=== PATIENT | female | born 1960 | race Caucasian/White ===

== ENCOUNTER 2018-05-02 11:30 | Outpatient (RCR) | payer MEDICAID, SELFPAY ==
--- NOTE | 2018-05-02 09:45 | PTTR_ITS ---
DATE: 05/02/18 SUBJECTIVE: Rosa Isela stating that she had a lot of soreness in her (L) hips for 2- 3 days following her last tx due to muscle fatigue. She is now feeling much better. She doesn't feel that she is going to be able to handle 3x per week based on her muscle pain that she is experiencing and would like to just do 2x per week transitioning into MSP. OBJECTIVE: Therapeutic procedures ([id number]). * X See flow sheet * X Provided skilled instruction in proper exercise performance * X Provided skilled manual cues to facilitate proper muscle recruitment and/ or movement pattern Direct treatment time: 30 minutes Total treatment time: 30 minutes ASSESSMENT: Pt demonstrating awareness of her own limitations demonstrating good movement pattern and muscle recruitment with all exercises and I feel that she is more than appropriate to progress to the MSP program under life skills trainer supervision for continued (L) hip girdle and core strengthening efforts. She is certainly demonstrating continued weakness and fatigue but I feel that this is something that can certainly be productively carried out with life skills trainer supervision so we can preserve her PT sessions for the year. PLAN: Pt to continue with MSP x1 month. I will see her again in 1 month to see how she is progressing.
== END 2018-05-31 23:59 | disposition home or self-care (01) ==
LOC: PT 11:30
PROVIDERS: PCP Nurse Practitioner Family; Referring Provider Orthopaedic Surgery; Visit Provider Orthopaedic Surgery
DX: S72.002D Fracture of unspecified part of neck of left femur, subsequent encounter for closed fracture with routine healing (principal)
CPT/HCPCS: 97110

== ENCOUNTER 2018-08-12 08:58 | Day surgery (SDC) | payer MEDICAID, SELFPAY ==
--- NOTE | 2018-08-12 06:52 | W.COLOREPORT ---
Date of service: 08/12/18 Time of Service: 11:10 Colonoscopy Report Date of procedure: 08/12/18 Pre-op diagnosis general: Colon Cancer screening Post-op diagnosis procedure note: other (Diverticulosis, internal hemorrhoids) Procedure: Colonoscopy Surgeon: Roberta Guerra Anesthesia proc note operative: MAC (Hugo Matthew CRNA/ ASA 2) Estimated blood loss (mL): 0 Pathology: none sent Complications: None Disposition: same day Indications: Mrs. Washington is a pleasant 58 year old female who was seen in the office for a colonoscopy. Her last colonoscopy in 2007 was normal. Risks, benefits, complications were reviewed with her and she wished to proceed. No guarantees were given or implied Prep: Miralax/Dulcolax Procedure Start Time: 11:10 Procedure End Time: 11:38 Retraction Time: 16 minutes Findings: Grade 1 internal hemorrhoids Mild sigmoid diverticulosis Procedure Description: After informed consent was obtained the patient was taken to the procedure room and placed in a left decubitous position. Monitors were applied and a time out was done. The patients name, date of , procedure, allergies to medications and metal in their body was reviewed. The patient was then sedated. Once sedated and comfortable a rectal exam was done. External exam was normal. Internal exam revealed a normal sphincter tone and no palpable masses. The scope was then introduced and retroflexed. Grade I internal hemorrhoids were identified. The scope was then advanced to the cecum without difficulty. The TI and appendiceal orifice were identified. The prep was adequate. There was some liquid stool but that was able to get washed easily. The scope was then slowly retracted over 16 minutes back into the rectum. There was some mild diverticulosis of the sigmoid colon. The scope was removed and the patient was woken up and taken back to Same day surgery in stable condition. The patient tolerated the procedure well and there were no immediate complications. Follow up: The patient should follow up in 10 years unless they develop changes in bowel habits or other new gastrointestinal complaints.
--- NOTE | 2018-08-12 07:05 | PDOC.DSDIS_ITS ---
Discharge Plan Disposition Patient Disposition: HOME Condition: Good Discharge Details Reason For Visit: SCREENING Attending Provider: Roberta Guerra Primary Care Provider: Lucila Love Home Meds and New Rx's Prescriptions: Continue multivitamin [Multi-Day] 1 EACH tablet 1 ea PO DAILY RF: 0 glucosamine sulfate 2KCl 1,000 MG tablet 1,000 mg PO DAILY RF: 0 omega-3 fatty acids-fish oil 1 EACH capsule 1 ea PO DAILY RF: 0 aspirin [Aspir-81] 81 MG tablet,delayed release (DR/EC) 81 mg PO DAILY RF: 0 cinnamon bark 500 MG capsule 500 mg PO BID RF: 0 montelukast [Singulair] 10 MG tablet 10 mg PO DAILY Qty: 90 RF: 4 albuterol sulfate [ProAir HFA] 8.5 GM HFA aerosol inhaler 2 puff Inhalation Q6H PRN Qty: 1 RF: 3 loratadine [Claritin] 10 MG tablet 10 mg PO DAILY Qty: 90 RF: 2 fluticasone [Flovent HFA] 12 GM HFA aerosol inhaler 2 puff Inhalation BID Qty: 1 RF: 11 multivitamin with minerals [Hair,Skin and Nails] Tablet 1 tab PO DAILY RF: 0 vitamin E 1,000 unit Capsule 2 ea PO RF: 0 ergocalciferol (vitamin D2) [Vitamin D2] 50,000 unit Capsule 2 ea PO RF: 0 Discharge Instructions Instructions: Colonoscopy (DC), Diverticulosis (DC), Hemorrhoids (DC) Additional Instructions: Findings: Small Internal hemorrhoids mild diverticulosis Follow up: 10 years New Medications: none Please call if you develop: fevers >101.5 Nausea or Vomiting Abdominal pain that is not transient 1. Because there will be medication in your system for the next 24 hours, you may feel a little sleepy. Your coordination will be affected. Therefore: a. Do not drive or operate dangerous equipment for 24 hours. b. Do not drink alcohol beverages for 24 hours (not even beer). c. Plan to go home and rest for the day. 2. Generally there are no restrictions on your activity after a day or so has gone by, but you may feel a bit fatigued for a few days. 3 After you arrive home you may have a light meal and return to a normal diet as you can tolerate it without feeling sick to your stomach. 4. After surgery, you may feel pain or discomfort. This should be only transient , but if it persists please contact your doctor. 5. If there are any questions regarding the findings of your procedure, please feel free to contact your doctor. 6. If you are unable to contact your doctor with a problem, contact the hospital at [phone]. 7. Continue all your regular medications unless directed otherwise. I understand the above instructions and have no questions. Signature of Patient or Responsible Adult Escort Date/Time Name of Responsible Adult Escort Signature of Nurse Date/Time Stand Alone Forms: Kirk Haynes (MARGARITAU) Activity:: Activity as Tolerated Diet:: high fiber diet Discharge Orders Discharge Orders: Discharge Order (Routine); Ordered 08/12/18 Ordered By: Roberta Guerra DS: Diagnosis Discharge Diagnosis (1) Internal hemorrhoids: Status: Acute (2) Diverticulosis: Status: Acute
[2018-08-12 09:12] VITALS: BP 126/69; PULSE 78; RESP 16; TEMP 36.7; O2SAT 98
[2018-08-12] MEDS: Lactated Ringers 1,000 ML 80 ML IV (10:30)
[2018-08-12 12:15] VITALS: BP 140/82; PULSE 75; RESP 20; TEMP 36.5; O2SAT 98
== END 2018-08-12 12:35 | disposition home or self-care (01) ==
LOC: SUR 08:59
PROVIDERS: PCP Nurse Practitioner Family; Visit Provider Surgery
PROC: 0DJD8ZZ Inspection of Lower Intestinal Tract, Via Natural or Artificial Opening Endoscopic (ICD-10-PCS; CPT 45378; principal; 2018-08-12 11:30)
DX: Z12.11 Encounter for screening for malignant neoplasm of colon (principal); K57.30 Diverticulosis of large intestine without perforation or abscess without bleeding; K64.0 First degree hemorrhoids; J44.9 Chronic obstructive pulmonary disease, unspecified; G47.33 Obstructive sleep apnea (adult) (pediatric); K21.9 Gastro-esophageal reflux disease without esophagitis
CPT/HCPCS: 45378; J2250

== ENCOUNTER 2018-08-19 11:28 | Outpatient (CLI) | payer MEDICAID, SELFPAY ==
--- NOTE | 2018-08-19 11:52 | DI.RAD_ITS ---
SYMPTOM/DIAGNOSIS: BIBASILAR CRACKLES ON EXAM, R09.89 PA AND LATERAL CHEST: The heart is not enlarged. Lungs are predominantly clear with some minimal interstitial/fibrotic radiodensities in the bases. The findings are less prominent than on previous examination of 11/18/17. No pleural effusion is seen. CONCLUSION: Mild bibasilar interstitial prominence which may be chronic. No other abnormality is seen.
== END 2018-08-19 11:48 ==
PROVIDERS: PCP Nurse Practitioner Family; Visit Provider Nurse Practitioner Family
DX: R09.89 Other specified symptoms and signs involving the circulatory and respiratory systems (principal); J98.4 Other disorders of lung
CPT/HCPCS: 71046

== ENCOUNTER 2018-08-23 00:33 | Outpatient (CLI) | payer MEDICAID, SELFPAY ==
--- NOTE | 2018-08-23 13:24 | MERGE_ITS ---
*[facility]* *[facility]* [address] [place] [address] Date of study: 08/23/2018 Transthoracic Echocardiography M-mode, complete 2D, complete spectral Doppler, and color Doppler *STUDY CONCLUSIONS* Impressions: Normal systolic function, no significant valvular abnormality. Summary: 1. Left ventricle: The cavity size was normal. Wall thickness was at the upper limits of normal. Systolic function was normal. The estimated ejection fraction was 60-65%. Wall motion was normal; there were no regional wall motion abnormalities. Some parameters suggest diastolic dysfunction. 2. Mitral valve: There was mild regurgitation. 3. Left atrium: The atrium was mildly dilated. 4. Right ventricle: The cavity size was normal. Wall thickness was normal. Systolic function was normal. 5. Pulmonary arteries: PA peak pressure: 34mm Hg (S). *PATIENT PRESENTATION* Height: 175.3cm ((69in) ) S/D Pressure: 116 / 70 Weight: 109.8kg ((241.5lb) ) BSA: 2.35m^2 Test start time: 01:40 PM. Test stop time: 02:25 PM. PERFORMING Unknown PERFORMING [facility] ORDER SELECTOR RT Lisha Clement)(LORETO), [facility] ORDERING Lucila Love REFERRING Lucila Love *PROCEDURE DATA* Procedure information: The patient was identified by two identifiers. This study was interpreted by [facility]. Pertinent images and digital data are archived for permanent storage and are available for subsequent review. No prior study was available for comparison. Study status: Routine. Transthoracic echocardiography. M-mode, complete 2D, complete spectral Doppler, and color Doppler. A Transthoracic Echocardiogram was performed. Scanning was performed from the parasternal, apical, subcostal, and suprasternal notch acoustic windows. Images were obtained using an [id number] cardiac ultrasound machine. Image quality was fair. Study completion: The patient tolerated the procedure well. History: PMH: Known systolic murmur, DUMONT. *CARDIAC ANATOMY* Left ventricle: The cavity size was normal. Wall thickness was at the upper limits of normal. Systolic function was normal. The estimated ejection fraction was 60-65%. Wall motion was normal; there were no regional wall motion abnormalities. Some parameters suggest diastolic dysfunction. Aortic valve: Trileaflet; normal thickness leaflets. Mobility was not restricted. Doppler: Transvalvular velocity was within the normal range. There was no stenosis. There was no significant regurgitation. VTI ratio of LVOT to aortic valve: 0.77. Valve area (VTI): 2.5cm^2. Indexed valve area (VTI): 1.1cm^2/m^2. Peak velocity ratio of LVOT to aortic valve: 0.76. Valve area (Vmax): 2.5cm^2. Indexed valve area (Vmax): 1.1cm^2/m^2. Mean velocity ratio of LVOT to aortic valve: 0.66. Valve area (Vmean): 2.1cm^2. Indexed valve area (Vmean): 0.9cm^2/m^2. Mean gradient (S): 6.7mm Hg. Peak gradient (S): 12.4mm Hg. Aorta: Aortic root: The aortic root was normal in size. Ascending aorta: The ascending aorta was normal in size. Aortic arch: The aortic arch was normal in size. Mitral valve: Mildly thickened leaflets. Mobility was not restricted. Doppler: Transvalvular velocity was within the normal range. There was no evidence for stenosis. There was mild regurgitation. Valve area by pressure half-time: 4cm^2. Indexed valve area by pressure half-time: 1.7cm^2/m^2. Left atrium: The atrium was mildly dilated. Right ventricle: The cavity size was normal. Wall thickness was normal. Systolic function was normal. Pulmonic valve: Poorly visualized. Doppler: Transvalvular velocity was within the normal range. There was no evidence for stenosis. There was trivial regurgitation. Tricuspid valve: Structurally normal valve. Doppler: Transvalvular velocity was within the normal range. There was no evidence for stenosis. There was mild regurgitation. Pulmonary artery: Poorly visualized. Pulmonary systolic pressure was at the upper limits of normal. Right atrium: The atrium was at the upper limits of normal in size. Pericardium: There was no pericardial effusion. Systemic veins: Inferior vena cava: Poorly visualized. Baseline ECG: Normal sinus rhythm. Measurements Left ventricle Value Reference LV ID, ED, PLAX 5.9 cm 3.5 - 6.0 LV ID, ES, PLAX 3.9 cm 2.1 - 4.0 LV PW thickness, ED, PLAX 0.9 cm LV end-diastolic volume, 1-p A2C 130 ml LV ejection fraction, 1-p A2C 58 % LV end-diastolic volume, 1-p A4C 127 ml LV ejection fraction, 1-p A4C 63 % LV e', lateral 0.09 m/sec LV E/e', lateral 5 LV e', medial 0.066 m/sec LV E/e', medial 7 LV e', average 0.078 m/sec LV E/e', average 6 Ventricular septum Value Reference IVS thickness, ED, PLAX 0.9 cm LVOT Value Reference LVOT ID, A-P 2.0 cm LVOT area 3.3 cm^2 LVOT peak velocity, S 1.34 m/sec LVOT mean velocity, S 0.81 m/sec LVOT VTI, S 31.5 cm LVOT peak gradient, S 7.2 mm Hg LVOT mean gradient, S 3.3 mm Hg Stroke volume (SV), LVOT DP 103 ml Stroke index (SV/bsa), LVOT DP 44 ml/m^2 Aortic valve Value Reference Aortic valve peak velocity, S 1.8 m/sec Aortic valve mean velocity, S 1.23 m/sec Aortic valve VTI, S 41.0 cm Aortic mean gradient, S 6.7 mm Hg Aortic peak gradient, S 12.4 mm Hg VTI ratio, LVOT/AV 0.77 Aortic valve area, VTI 2.5 cm^2 Velocity ratio, peak, LVOT/AV 0.76 Aortic valve area, peak velocity 2.5 cm^2 Velocity ratio, mean, LVOT/AV 0.66 Aortic valve area, mean velocity 2.1 cm^2 Aortic valve area/bsa, mean velocity 0.9 cm^2/m^2 Aorta Value Reference Aortic root ID, ED 2.7 cm Ascending aorta ID, A-P, S 3.2 cm Aortic arch ID 2.8 cm Left atrium Value Reference LA ID, A-P, ES 4.2 cm LA ID/bsa, A-P 1.8 cm/m^2 <=2.2 LA area, ES, A4C (H) 24 cm^2 8.8 - 23.4 LA volume/bsa, ES, 1-p A4C 32 ml/m^2 LA/aortic root ratio 1.54 Mitral valve Value Reference Mitral E-wave peak velocity 0.44 m/sec Mitral A-wave peak velocity 0.94 m/sec Mitral deceleration time 188 ms 150 - 230 Mitral pressure half-time 54 ms Mitral E/A ratio, peak 0.47 Mitral valve area, PHT, DP 4 cm^2 Pulmonary arteries Value Reference PA pressure, S, DP (H) 34 mm Hg <=30 Tricuspid valve Value Reference Tricuspid regurg peak velocity 2.4 m/sec Tricuspid peak RV-RA gradient 23.9 mm Hg Right atrium Value Reference RA area, ES, A4C 17.8 cm^2 8.3 - 19.5 Systemic veins Value Reference Estimated CVP 10 mm Hg Right ventricle Value Reference RV pressure, S, DP (H) 34 mm Hg <=30 Legend: (L) and (H) rianna values outside specified reference range. I have personally reviewed the images and have reviewed and edited the reported findings. Electronically signed by Laura Ng 08/24/2018 11:37
== END 2018-08-23 00:53 ==
PROVIDERS: PCP Nurse Practitioner Family; Visit Provider Nurse Practitioner Family
DX: R01.1 Cardiac murmur, unspecified (principal); R06.09 Other forms of dyspnea; I34.0 Nonrheumatic mitral (valve) insufficiency
CPT/HCPCS: 93306

== ENCOUNTER 2018-08-29 09:31 | Outpatient (CLI) | payer MEDICAID, SELFPAY ==
[2018-08-29 10:09] LABS: Abs Immature Grans 0.03 k/cumm (0.0-0.09); Absolute Basophil Count 0.03 k/cumm (0.0-0.2); Absolute Eosinophil Count 0.07 k/cumm (0.0-0.7); Absolute Lymphocyte Count 2.01 k/cumm (1.2-3.4); Absolute Monocyte Count 0.47 k/cumm (0.11-0.7); Absolute Neutrophil Count 3.38 k/cumm (1.2-6.7); Basophils % 0.5; Eosinophils % 1.2; HCT 39.6 % (36.0-46.0); HGB 13.4 g/dL (12.0-15.5); Immature Grans % 0.5; Lymphocytes % 33.6; Mean Corp. HGB Concentration 33.8 g/dL (32.0-36.0); Mean Corpuscular Hemoglobin 30.6 pg (27.0-33.0); Mean Corpuscular Volume 90.4 fL (80-95); Mean Platelet Volume 9.7 fL (8.0-11.0); Monocytes % 7.8; Neutrophils % 56.4; Platelet Count 221 x1000/uL (130-400); RBC 4.38 m/cumm (4.00-5.20); RBC Distribution Width 13.2 % (11.7-14.6); White Blood Cell Count 5.99 k/cumm (4.4-10.8)
[2018-08-29 11:17] LABS: ALT 33 U/L (12-78); AST 17 U/L (15-37); Albumin 4.1 g/dL (3.4-5.0); Alkaline Phosphatase 103 U/L (46-116); Anion Gap 9.6 mmol/L (3-11); BUN 14 mg/dL (7-18); Bilirubin, Total 0.4 mg/dL (0.2-1.0); CO2 26.4 mmol/L (21.0-32.0); CREATININE 0.74 mg/dL (0.55-1.02); Calcium 9.2 mg/dL (8.5-10.1); Chloride 104 mmol/L (98-107); FREE T4 0.76 ng/dL (0.76-1.46); Glucose 94 mg/dL (70-100); NT-proBNP 52 pg/mL; Potassium 4.1 mmol/L (3.5-5.1); Sodium 140 mmol/L (136-145); TSH 10.97 uIU/mL (0.358-3.74); Total Protein 7.5 g/dL (6.4-8.2)
== END 2018-08-29 09:51 ==
PROVIDERS: PCP Nurse Practitioner Family; Visit Provider Nurse Practitioner Family
DX: R06.00 Dyspnea, unspecified (principal); R09.89 Other specified symptoms and signs involving the circulatory and respiratory systems; R79.89 Other specified abnormal findings of blood chemistry
CPT/HCPCS: 36415; 80053; 83880; 84439; 84443; 85025

== ENCOUNTER 2018-09-05 01:30 | Outpatient (CLI) | payer MEDICAID, SELFPAY ==
--- NOTE | 2018-09-05 13:53 | DI.CT_ITS ---
SYMPTOMS/DIAGNOSIS: SUSPECTED INTERSTITIAL LUNG DISEASE, DYSPNEA, R06.[address]: Inspiratory and expiratory images were performed. The exam is limited by respiratory motion. There is no significant air trapping on the expiratory study. A standard noncontrast CT was also performed. This is also limited by respiratory motion. There are dependent changes at the posterior lung bases. No focal infiltrate or effusion is seen. No emphysematous changes are seen. There may be mild subpleural septal thickening seen in both upper and lower lobes. There is motion at the level of the heart. There is apparent left atrial and left ventricular motion. There is minimal calcification at the descending aorta. The patient is status post cholecystectomy. The visualized portions of the upper abdomen are unremarkable. There is a small hiatal hernia. Both lobes of the thyroid appear enlarged. No focal thyroid lesion is identified. IMPRESSION: Evaluation of the lungs is limited due to respiratory motion. There is mild nonspecific septal thickening. There are dependent changes seen posteriorly.
== END 2018-09-05 01:50 ==
PROVIDERS: PCP Internal Medicine; Visit Provider Nurse Practitioner Family
DX: R06.00 Dyspnea, unspecified (principal); J84.9 Interstitial pulmonary disease, unspecified
CPT/HCPCS: 71250

== ENCOUNTER 2018-09-09 02:42 | Outpatient (CLI) | payer MEDICAID, SELFPAY ==
--- NOTE | 2018-09-09 | PFT_ITS ---
PULMONARY FUNCTION TEST REPORT Patient identification - Rosa Isela Washington DATE OF - 56 DATE OF SERVICE - 09-09-18 REQUESTING PROVIDER Lucila Love M.D. INTERPRETATION OF STUDY Spirometry shows no evidence of obstructive airways disease. No bronchodilator response. LUNG VOLUMES - Lung volumes show no evidence of restriction. DIFFUSION CAPACITY- Normal. AIRWAY RESISTANCE - Normal. IMPRESSION Overall normal pulmonary function study. Clinical correlation recommended. When this study was compared to previous ones from 03/11/09 and 02/11/14, the patient has a gradual improvement in FVC of a total of 220 cc, FEV1 has remained stable. Sabrina Scherer M.D. JUSTICE/roslyn T - 09/11/2018
[2018-09-09] MEDS: Inhaler, Assist Device 1 EACH MC (14:01)
[2018-09-09] MEDS: Albuterol HFA 18 GM 200 PUFF INH IH (14:02)
== END 2018-09-09 03:02 ==
PROVIDERS: PCP Internal Medicine; Visit Provider Nurse Practitioner Family
DX: R06.09 Other forms of dyspnea (principal)
CPT/HCPCS: 94060; 94150; 94726; 94729

== ENCOUNTER 2018-11-05 11:13 | Outpatient (CLI) | payer MEDICAID, SELFPAY ==
[2018-11-05 12:59] LABS: FREE T4 0.88 ng/dL (0.76-1.46)
[2018-11-06 09:16] LABS: Thyroglobulin Antibody 426 U/mL (<61); Thyroperoxidase Antibody >1300 U/mL (<61)
[2018-11-07 06:29] LABS: Vitamin D 25 Total 27.4 ng/ml (30-100)
== END 2018-11-05 11:33 ==
PROVIDERS: Obstetrics & Gynecology Gynecology; PCP Internal Medicine; Visit Provider Nurse Practitioner Family
DX: E03.9 Hypothyroidism, unspecified (principal); Z87.81 Personal history of (healed) traumatic fracture; Z00.00 Encounter for general adult medical examination without abnormal findings
CPT/HCPCS: 36415; 82306; 86376; 84439; 84443

== ENCOUNTER 2019-01-01 09:38 | Outpatient (CLI) | payer MEDICAID, SELFPAY ==
[2019-01-01 11:22] LABS: FREE T4 0.89 ng/dL (0.76-1.46); TSH 7.87 uIU/mL (0.358-3.74)
== END 2019-01-01 09:58 ==
PROVIDERS: PCP Internal Medicine; Visit Provider Nurse Practitioner Family
DX: E03.9 Hypothyroidism, unspecified (principal)
CPT/HCPCS: 36415; 84439; 84443

== ENCOUNTER 2019-01-14 21:37 | Outpatient (REF) | payer MEDICAID, SELFPAY ==
[2019-01-14 19:38] LABS: Bilirubin Negative (Negative); Blood Moderate (Negative); Clarity Sl Cloudy; Glucose Negative (Negative); Ketones Trace mg/dL (Negative); Leukocyte Esterase Moderate (Negative); Nitrite Positive (Negative); Urobilinogen 0.2 EU/dL (Up TO 0.2); pH 5.5 (5-8)
[2019-01-14 20:00] LABS: Bacteria Many HPF (Negative); C & S Indicated? Yes; Casts Negative LPF (Negative); Crystals Negative HPF (Negative); Epithelial Cells Few HPF (Negative); Mucus Negative (Negative); Other Cells Few Renal (Negative); WBC >50 HPF (0-5)
== END 2019-01-14 21:57 ==
LOC: LBN 21:37
PROVIDERS: PCP Internal Medicine; Visit Provider Family Medicine
DX: R31.9 Hematuria, unspecified (principal)
CPT/HCPCS: 87077; 81003; 81015; 87086; 87186

== ENCOUNTER 2019-02-27 00:09 | Outpatient (CLI) | payer MEDICAID, SELFPAY ==
--- NOTE | 2019-02-27 11:23 | DI.MAMMO_ITS ---
SYMPTOMS/DIAGNOSIS: SCREENING, Z12.31 MAMMOGRAM: Mammograms were interpreted according to the usual protocol including computer analysis with CAD system, tomosynthesis and C view imaging. The breast tissue is of moderate radiodensity. There is no evidence of a dominant mass. There are no suspicious calcifications and there been no significant interval change when compared with prior images. SUMMARY: No evidence of malignancy, Category I, annual screening mammography recommended. Breast density Category B. SA ASSESSMENT OF FINDINGS: Negative. Category 1. Patient will receive a letter notifying them of these results. BI-RADS category B. There are scattered areas of fibroglandular density.
== END 2019-02-27 00:29 ==
PROVIDERS: PCP Internal Medicine; Visit Provider Obstetrics & Gynecology Gynecology
DX: Z12.31 Encounter for screening mammogram for malignant neoplasm of breast (principal); M25.561 Pain in right knee; M17.11 Unilateral primary osteoarthritis, right knee; M25.569 Pain in unspecified knee
CPT/HCPCS: 77063; 77067; 73564

== ENCOUNTER 2019-02-27 01:37 | Outpatient (CLI) | payer MEDICAID, SELFPAY ==
--- NOTE | 2019-02-27 07:01 | DI.RAD_ITS ---
SYMPTOMS/DIAGNOSIS: PAIN, M25.569 RIGHT KNEE: There is some narrowing of the lateral tibiofemoral joint space. Mild periarticular hypertrophic changes are demonstrated and there are degenerative changes involving the patellofemoral joint. SUMMARY: Mild degenerative changes involving the right knee are identified.
== END 2019-02-27 01:57 ==
PROVIDERS: PCP Internal Medicine; Visit Provider Internal Medicine
DX: M25.561 Pain in right knee (principal); M17.11 Unilateral primary osteoarthritis, right knee
CPT/HCPCS: 73564

== ENCOUNTER 2019-03-14 07:13 | Outpatient (CLI) | payer MEDICAID, SELFPAY ==
[2019-03-14 10:10] LABS: FREE T4 1.04 ng/dL (0.76-1.46)
[2019-03-14 10:14] LABS: TSH (W/Ref FT4) 5.79 uIU/mL (0.358-3.74)
== END 2019-03-14 07:33 ==
PROVIDERS: Nurse Practitioner Family; PCP Internal Medicine; Visit Provider Internal Medicine
DX: E03.9 Hypothyroidism, unspecified (principal); E55.9 Vitamin D deficiency, unspecified
CPT/HCPCS: 36415; 84439; 84443

== ENCOUNTER 2019-05-14 15:14 | Outpatient (CLI) | payer MEDICAID, SELFPAY ==
--- NOTE | 2019-05-14 15:05 | DI.RAD_ITS ---
SYMPTOMS/DIAGNOSIS: CONTINUED LEFT HIP WEAKNESS AND PAIN PELVIS AND RIGHT HIP: Comparison is made with November,. The three partially threaded screws are again noted through the proximal left femur for fracture fixation. There has been no change in appearance of the hardware. There are moderate degenerative changes of the left hip and mild degenerative changes of the right hip. IMPRESSION: Stable degenerative and postsurgical changes.
== END 2019-05-14 15:34 ==
PROVIDERS: PCP Internal Medicine; Visit Provider Physician Assistant
DX: M25.552 Pain in left hip (principal)
CPT/HCPCS: 73502

== ENCOUNTER 2019-05-16 09:30 | Outpatient (CLI) | payer MEDICAID, SELFPAY ==
[2019-05-16 11:26] LABS: ALT 26 U/L (12-78); AST 14 U/L (15-37); Albumin 4.1 g/dL (3.4-5.0); Alkaline Phosphatase 94 U/L (46-116); Anion Gap 10.6 mmol/L (3-11); BUN 16 mg/dL (7-18); Bilirubin, Total 0.4 mg/dL (0.2-1.0); CO2 25.4 mmol/L (21.0-32.0); CREATININE 0.84 mg/dL (0.55-1.02); Calcium 9.1 mg/dL (8.5-10.1); Chloride 106 mmol/L (98-107); Glucose 94 mg/dL (70-100); Potassium 4.4 mmol/L (3.5-5.1); Sodium 142 mmol/L (136-145); TSH (W/Ref FT4) 4.43 uIU/mL (0.36-3.74); Total Protein 7.5 g/dL (6.4-8.2)
[2019-05-16 11:41] LABS: FREE T4 1.05 ng/dL (0.76-1.46)
== END 2019-05-16 09:50 ==
PROVIDERS: PCP Internal Medicine; Visit Provider Internal Medicine
DX: E03.9 Hypothyroidism, unspecified (principal)
CPT/HCPCS: 36415; 80053; 84439; 84443

== ENCOUNTER 2019-06-12 00:52 | Outpatient (CLI) | payer MEDICAID, SELFPAY ==
--- NOTE | 2019-06-12 07:39 | DI.RAD_ITS ---
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 Moreira during a left hip injection. Hard copy shows apparent post injection film with contrast material in the hip joint with three lag screws in place transfixing the femoral head and neck.
--- NOTE | 2019-06-12 13:47 | W.PROCNOTE ---
Date of service: 06/12/19 Time of Service: 13:47 Procedure Note Date of procedure: 06/12/19 Procedure: Left Hip Injection with Fluoroscopic Guidance Surgeon/Proceduralist/Physician: Juan Moreira Procedure Diagnosis: Left Hip Osteoarthritis Procedure Indications: Rosa Isela has had worsening pain of the LEFT hip and groin after previous femoral neck fracture and surgery. Noninvasive measures have been tried. To serve as both diagnostic and therapeutic, an injection under fluoroscopy was recommended. I had discussed the risks of the procedure and the patient elected to proceed. Procedure Description: Rosa Isela was greeted in the flouroscopy room. The correct side was identified and the consent was reviewed with the patient and signed. The patient was then placed in the supine position on the fluoroscopy table. The LEFT hip was then prepped with Chloraprep. The anterolateral injection starting point was identiifed by bony landmarks and fluoroscopy. The skin and soft tissue in the tract of the injection was anesthetized with 1% Lidocaine. A spinal needle was then inserted deep into the hip joint at the level of the lateral femoral neck under fluoroscopic guidance. A small amount of Omnipaque solution was injected to confirm intraarticular placement. Once confirmed, the hip was injected with 6cc of 0.5% Bupivicaine and 80mg of Depo-Medrol. A bandaid was placed on the injection site. The patient tolerated the procedure well and noted improvement in pre-injection pain.
[2019-06-12] MEDS: Bupivacaine 0.5% Pres-Free 10 ML VIAL 50 ML IJ (15:22)
[2019-06-12] MEDS: Omnipaque 300 MG/ML 10 ML BTL IJ (15:23)
[2019-06-12] MEDS: methylPREDNISolone ACETATE 80 MG/ML VIAL IM (15:24)
[2019-06-12] MEDS: Lidocaine 1% Pres-Free 5 ML VIAL IJ (15:25)
== END 2019-06-12 01:12 ==
PROVIDERS: PCP Internal Medicine; Visit Provider Student in an Organized Health Care Education/Training Program
DX: M87.052 Idiopathic aseptic necrosis of left femur (principal); M25.552 Pain in left hip
CPT/HCPCS: 20610; 77002; J1040

== ENCOUNTER 2019-07-22 01:21 | Outpatient (CLI) | payer MEDICAID, SELFPAY ==
--- NOTE | 2019-07-22 12:19 | DI.CT_ITS ---
EXAM: CT SINUS WO CLINICAL HISTORY: SINUSITIS/TREMORS, R25.1 TREMOR, J32.9 CHRONIC SINUSITIS TECHNIQUE: Noncontrast COMPARISON: FACIAL WITHOUT CONTRAST from 09/09/2016 FINDINGS: Has been no significant change in the appearance of the cystic lesion in the left maxilla which dis places 1 of the molar teeth superiorly with the roots extending into the left maxillary sinus. There is no sinus disease per se. There is no mucous retention or air-fluid levels. The nasal septum is midline. The ostiomeatal complexes appear patent. The orbits and visualized portions of the brain a re unremarkable. IMPRESSION: No change in the cystic lesion of the left maxilla. No evidence of sinus disease.
== END 2019-07-22 01:41 ==
PROVIDERS: PCP Internal Medicine; Visit Provider Internal Medicine
DX: J32.9 Chronic sinusitis, unspecified (principal); M27.49 Other cysts of jaw; R25.1 Tremor, unspecified
CPT/HCPCS: 70486

== ENCOUNTER 2019-08-11 07:57 | Outpatient (CLI) | payer MEDICAID, SELFPAY ==
[2019-08-11 09:39] LABS: TSH (W/Ref FT4) 2.62 uIU/mL (0.36-3.74)
== END 2019-08-11 08:17 ==
PROVIDERS: PCP Internal Medicine; Visit Provider Internal Medicine
DX: E03.9 Hypothyroidism, unspecified (principal)
CPT/HCPCS: 36415; 84443

== ENCOUNTER 2019-09-09 13:44 | Outpatient (CLI) | payer MEDICAID, SELFPAY | END 2019-09-09 14:04 | PROVIDERS: PCP Internal Medicine; Visit Provider Obstetrics & Gynecology Gynecology | DX: Z01.818 Encounter for other preprocedural examination (principal) ==

== ENCOUNTER 2019-09-09 14:36 | Outpatient (CLI) | payer MEDICAID, SELFPAY ==
[2019-09-09 15:12] LABS: HCT 39.2 % (36.0-46.0); HGB 13.2 g/dL (12.0-15.5); Mean Corp. HGB Concentration 33.7 g/dL (32.0-36.0); Mean Corpuscular Hemoglobin 30.6 pg (27.0-33.0); Mean Corpuscular Volume 90.7 fL (80-95); Mean Platelet Volume 9.6 fL (8.0-11.0); Platelet Count 263 x1000/uL (130-400); RBC 4.32 m/cumm (4.00-5.20); RBC Distribution Width 13.2 % (11.7-14.6); White Blood Cell Count 6.69 k/cumm (4.4-10.8)
[2019-09-09 16:02] LABS: Anion Gap 8.5 mmol/L (3-11); BUN 12 mg/dL (7-18); CO2 29.5 mmol/L (21.0-32.0); CREATININE 0.69 mg/dL (0.55-1.02); Calcium 8.9 mg/dL (8.5-10.1); Chloride 105 mmol/L (98-107); Glucose 104 mg/dL (74-106); Sodium 143 mmol/L (136-145)
== END 2019-09-09 14:56 ==
PROVIDERS: PCP Internal Medicine; Visit Provider Obstetrics & Gynecology Gynecology
DX: N81.10 Cystocele, unspecified (principal); Z01.818 Encounter for other preprocedural examination; J44.9 Chronic obstructive pulmonary disease, unspecified; Z01.812 Encounter for preprocedural laboratory examination
CPT/HCPCS: 36415; 80048; 85027; 86850; 86900; 86901

== ENCOUNTER 2019-09-10 12:34 | Observation (INO) | payer MEDICAID, SELFPAY ==
[2019-09-10] VITALS (13 sets, daily range): BP systolic 83–137; BP diastolic 50–85; PULSE 54–82; RESP 13–20; TEMP 36.2–37.1; O2SAT 94–100
[2019-09-10] MEDS: Lactated Ringers 1,000 ML 125 ML IV ×2 (06:55→09:35)
[2019-09-10] MEDS: ceFAZolin 2 GM/50 ML BAG IVPB (07:35)
--- NOTE | 2019-09-10 08:58 | PDOC.DSDIS_ITS ---
Discharge Plan Disposition Patient Disposition: HOME Condition: Good Discharge Details Reason For Visit: ANTERIOR COLPORRHAPHY, VAGINAL BLEEDING Admit Date/Time: 09/10/19 12:34 Admit Provider: Felicia Lawler Attending Provider: Felicia Lawler Primary Care Provider: Sofía Minaya Hospital Course Hospital Course: Pt was admitted to observation status on Director Of Loss Prevention service after a anterior colporrhaphy. In the day surgery area she was and unable to void spontaneously and is concerned about the amount of postop clots on her undergarments. Upon arrival to the [facility] she underwent a catheterization and had 1200 cc clear demetrius urine in the Xiong bag it was left in overnight and underwent a successful retrograde bladder filling. She was able to void immediately and post void residuals have been less than 100 cc. No issues with incontinence. Her Vaginal bleeding is scant she is comfortable with ibuprofen and has a follow-up appointment with Dr. Lawler on 09/22/2019. She was given discharge instructions at the time of her surgery. Home Meds and New Rx's Prescriptions: No Action cholecalciferol (vitamin D3) 2,000 unit capsule 2,000 unit PO DAILY Qty: 90 RF: 3 polyethylene glycol 3350 [Miralax] 17 gram/dose powder 17 gm PO DAILY Qty: 850 RF: 2 zinc 50 mg tablet 50 mg PO DAILY RF: 0 calcium carbonate 600 mg calcium (1,500 mg) tablet 600 mg PO DAILY RF: 0 glucosamine sulfate 2KCl 1,000 MG tablet 1,000 mg PO DAILY RF: 0 omega-3 fatty acids-fish oil 1 EACH capsule 1 ea PO DAILY RF: 0 cinnamon bark 500 MG capsule 500 mg PO BID RF: 0 montelukast [Singulair] 10 mg tablet 10 mg PO DAILY Qty: 90 RF: 4 loratadine [Claritin] 10 mg tablet 10 mg PO DAILY Qty: 90 RF: 4 levothyroxine 125 mcg capsule 125 mcg PO DAILY Qty: 90 RF: 2 Flovent HFA 110 mcg/actuation HFA aerosol inhaler 2 puff Inhalation BID Qty: 1 RF: 11 carbidopa-levodopa [Sinemet] 25-100 mg tablet 2 tab PO TID Qty: 540 RF: 3 docusate sodium 100 mg capsule 100 mg PO BID Qty: 60 RF: 11 multivitamin with minerals [Hair,Skin and Nails] Tablet 1 tab PO DAILY RF: 0 Discharge Instructions Instructions: Anterior Vaginal Repair (DC) Additional Instructions: ex you mayperience vaginal bleeding for the next week. Avoid constipation and straining with defecation. Nothing in the vagina until you visit with Dr. Lawler approximately 2 weeks Stand Alone Forms: DSU Post op Instructions, Kirk Haynes (DSU), Nursing Discharge Form Referrals: Felicia Lawler MD [ [facility] STAFF PHYSICIAN] - 09/22/19 12:40 pm Activity:: Activity as Tolerated Equipment/Supplies:: No Equipment Needed Diet:: As Tolerated Discharge Orders Discharge Orders: Discharge Order (Routine); Ordered 09/11/19 Ordered By: Felicia Lawler Discharge Data Discharge Date/Time-TO BE ENTERED AT DEPARTURE: 09/11/19 14:03 DS: Diagnosis Discharge Diagnosis (1) Cystocele, midline: Status: Chronic (2) Hx of vaginal surgery: Status: Acute
[2019-09-10] MEDS: Ibuprofen 600 MG TAB PO (12:47)
[2019-09-10] MEDS: oxyCODONE 5 MG TAB PO (13:44)
--- NOTE | 2019-09-10 14:55 | HPE_ITS ---
Date of service: 09/10/19 Time of Service: 14:55 Assessment and Plan Assessment and plan (1) Hx of vaginal surgery: Status: Acute Assessment and plan: Patient underwent to the anterior colporrhaphy wit hout complications earlier today. Small amount of bright red blood from her vagina in the day surgery unit. I saw no evidence of active bleeding there was no organized clot along the incision line of the anterior vaginal wall. Vaginal pack temporarily placed and removed and patient arrived to [facility]. Plan is to continue observation of vaginal bleeding with a sindhu-pad count. No plan for return to the OR unless vaginal bleeding persists. (2) Acute urinary retention: Status: Acute Assessment and plan: Urinary retention after anterior colporrhaphy. 1200 cc of clear demetrius urine emptied from urinary bladder upon arrival to [facility]. I plan to leave the Xiong catheter to gravity drainage and overnight. We will attempt a voiding trial in the morning. Her discomfort has improved since the bladder was drained. History of Present Illness History of Present Illness Chief Complaint: Vaginal bleeding and urinary retention Narrative: Ms. Washington is a 59-year-old postmenopausal female who had a symptomatic stage III cystocele and underwent a anterior colporrhaphy on 09/10/2019. Procedure was uncomplicated she had approximately 20 cc of estimated blood loss and was preparing for discharge from the day surgery unit when she preparing to void and passed several blood clots from the vagina. She had another 3 cm blood clot on her adult diaper and staining with right bright red blood by the time I had evaluated her in day surgery unit. I did speculum examination there was no evidence of active bleeding from the site of the anterior colporrhaphy. Vaginal pack was placed into the vagina and decision was made to admit her for observation. Review of Systems Constitutional Comments: On arrival to room 205 in the medical surgical floor she reported being unable to pass urine. She did void approximately 100 cc of clear pink- tinged urine in the toilet but felt as if her bladder was full. She was scanned for over 700 cc of urine. I placed a Xiong catheter to gravity drainage 1200 cc of clear demetrius urine drained out into the Xiong bag. The Xiong was left in place. I remove the vaginal packing with bright red blood on the most proximal portion of the vaginal pack and left it out. I informed the patient that she will remain hospitalized overnight and we will attempt a a voiding trial in the morning. Cardiovascular Cardiovascular: Reports system reviewed and no additional complaints, except as docu Respiratory Respiratory: Reports cough Gastrointestinal Gastrointestinal: Reports abdominal pain (Prior to Xiong catheter being placed to gravity drainage) Genitourinary Genitourinary: Reports as per HPI and Reports other Integumentary/Breasts Skin/Breast: Reports system reviewed and no additional complaints, except as docu [facility] Medical History (Updated 09/10/19 @ 15:13 by Felicia Lawler MD) Asthma (Chronic) mild persistent in combination with moderately-severe restrictive lung disease Chronic constipation (Acute) Cystocele, midline (Chronic) used #4 ring with support pessary. 09/10/19. anterior colporrhaphy GERD (gastroesophageal reflux disease) (Chronic) Hypothyroid (Chronic) She needs a new TSH as her last one was elevated in November and her synthoid dose was changed. Increased body mass index (Acute) Midline cystocele (Acute 02/18/13) Obstructive sleep apnea (Acute) 03/30/16-[facility] [place] CPAP Osteopenia (Chronic) Ordered after fractured femur right hip T score-0.2, lumbar spine T score- 1.3. Sigmoid diverticulosis (Chronic) Vitamin D deficiency (Chronic) Vitiligo Surgical History (Updated 09/10/19 @ 09:05 by Felicia Lawler MD) Cholecystectomy (Inactive 07/18/11) Colonoscopy planned (Inactive ~08/12/18) Dr Guerra: diverticulosis, internal hemorrhoids Cystectomy, Mini Lap Ovarian (Inactive 02/15/11) LEFT OVARIAN CYST Debridement, Soft Tissue (Resolved) 08/14/15; DR. BERKOWITZ; LEFT DORSAL HAND ABSCESS H/O colonoscopy (Inactive 08/17/08) Dr Elmer Koroma, negative, repeat in 10 years History of esophagogastroduodenoscopy (EGD) (Inactive 05/18/11) Dr Elmer Koroma History of vein stripping (Acute) Hx of fracture of femur (Acute 01/24/18) post open reduction and internal fixation of L femoral neck fracture treated with cannulated screws Hx of vaginal surgery (Acute) 09/10/2019 anterior colporrhaphy. Uterus remains. Status post cholecystectomy (Acute) Status post incision and drainage (Acute 08/14/15) Status post ovarian cystectomy (Acute) STRESS TEST (Resolved 01/23/14) VEIN STRIPPING (Resolved) 05/13/03 X 2; 02/15/11 Social History Smoking/Tobacco Use Status: Never Second Hand Exposure: No Alcohol Intake: never Drug use: Never Substance use type: does not use Caregiver/Support person: No Household members: other Details: D-lives alone. 2 sons and a daughter who lives in the area Housing: house Number of Children: 3 Communication Needs: None Education Level: high school Pets and animals: Yes Pets and animals: cat(s) Sexually active: No Current gender identity: decline to answer What is your relationship status?: How often do you talk on the phone with friends or family?: decline to answer How often do you get together with friends or relatives?: decline to answer How often do you attend mormonism or orthodox services?: decline to answer Do you belong to any clubs or organized social groups?: decline to answer Panel score (0-1 are the most socially isolated patients): 0 What type of physical activity do you participate in: swimming Duration: decline to answer Frequency: 3-4 times per week Veronika/Baptism: Sikh Special veronika needs: No Seatbelt use: always Drive intox or ride w/intox truck driver rubbish collector: No Do you feel safe at home: Yes History History 3 Para Hx # Term Pregnancies 3 Multiple births Hx # Pregnancies Ectopic pregnancies AB induced Hx Number of Living Children AB spontaneous Meds Home Medications and Allergies Home Medications Medication Instructions Recorded Confirmed Type glucosamine sulfate 2KCl 1,000 mg PO DAILY 12/22/13 09/10/19 History omega-3 fatty acids-fish oil 1 ea PO DAILY 12/22/13 09/10/19 History aspirin [Aspir-81] 81 mg PO DAILY tab-cap 11/09/14 09/10/19 History cinnamon bark 500 mg PO BID 05/17/16 09/10/19 History multivitamin with minerals 1 tab PO DAILY 08/09/18 09/10/19 History [Hair,Skin and Nails] vitamin E 2 ea PO 08/12/18 09/09/19 History montelukast 10 mg tablet 10 mg PO DAILY #90 tab-cap 10/02/18 09/10/19 Rx loratadine 10 mg tablet 10 mg PO DAILY #90 tab-cap 01/28/19 09/10/19 Rx cholecalciferol (vitamin D3) 50 2,000 unit PO DAILY #90 cap 02/26/19 09/10/19 Rx mcg (2,000 unit) capsule levothyroxine 125 mcg capsule 125 mcg PO DAILY #90 cap 05/22/19 09/10/19 Rx fluticasone propionate 110 2 puff INHALATION BID #1 inhaler 06/19/19 09/10/19 Rx mcg/actuation HFA aerosol inhaler doxycycline monohydrate 50 mg 25 mg PO BID tab 08/25/19 09/10/19 History tablet carbidopa 25 mg-levodopa 100 mg 2 tab PO TID #540 tab 09/09/19 09/10/19 Rx tablet docusate sodium 100 mg tablet 100 mg PO QHS tab 09/09/19 09/10/19 History Allergies Allergy/AdvReac Type Severity Reaction Status Date / Time acetaminophen [From [facility]] Allergy Intermediate Swelling/Ed Verified 09/10/19 06:29 rosalia Exam Const General: in distress (Primary Xiong catheter being inserted and bladder being drained) Nutritional Appearance: obese Orientation: alert, awake and oriented x3 Resp Effort & Inspection: normal respiratory effort Auscultation: clear to auscultation bilaterally Cardio Rate: regular rate Rhythm: regular rhythm GI Palpation: soft General: No CVA tenderness and deferred Other: As previously stated vaginal pack removed with primary blood on the proximal portion. Skin General skin exam: other (Rosacea type features on skin) Results Last Vital Signs Temp 97.3 F L 09/10/19 13:44 Pulse 66 09/10/19 13:44 Resp 18 09/10/19 13:44 BP 101/59 L 09/10/19 13:44 Pulse Ox 98 09/10/19 13:44
[2019-09-10] MEDS: Ondansetron O.D.T. 4 MG TABEF PO (16:02)
--- NOTE | 2019-09-10 17:23 | ROE_ITS ---
Date of service: 09/10/19 Time of Service: 17:23 Operative Note Operative Note DATE OF PROCEDURE: 09/10/19 PRE-OP DIAGNOSIS: Stage III cystocele POST-OP DIAGNOSIS: other Stage II uterine prolapse PROCEDURE: Anterior colporrhaphy SURGEON: Felicia Lawler MACHINED PARTS METAL SPRAYER: Tone Garrison ANESTHESIA: spinal (And laryngeal mask anesthesia) ESTIMATED BLOOD LOSS: 20 PATHOLOGY: none sent COMPLICATIONS: None Patient was transported to: PACU Patient's condition: stable Indications: 59-year-old with symptomatic cystocele previously treated with a vaginal pessary. Patient felt that the pessary was less effective over time, and had fallen out on several occasions. She requested definitive therapy. Findings: Anterior vaginal wall protruding past the introitus. Cervix present approximately mcc in the vagina. Procedure Description: Patient was taken the operating room where she was placed in the sitting position and spinal anesthesia was administered without difficulty. She was then placed in the dorsal supine position where laryngeal mask anesthesia was administered. She was then placed in the dorsal lithotomy position in [facility] stirrups. She received prophylactic antibiotics prior to arriving in the operating room. Surgical timeout was performed. She was prepped and draped in the usual sterile fashion a Xiong catheter was inserted to gravity drainage. Marking pen was used to outline a triangle on the epithelium of the cystocele. A single Allis clamp was placed 1 cm inferior to the urethral meatus and at the most proximal portion of the cystocele. The vaginal epithelium was infiltrated with 1% lidocaine with epinephrine in a transverse fashion at the base and in the midline to the distal Allis clamp. A scalpel was used to make a superficial transverse incision at the base of the cystocele. Metzenbaum scissor was then used to perform sharp dissection of the epithelium in the midline from the underlying muscularis and adventitia to the level of the pubic symphysis. The epithelium was then incised and this tissue dissected laterally using combination of blunt technique and dissection with Metzenbaum scissors. The distal muscularis and adventitia was then plicated using interrupted 0 Vicryl sutures a contiguous fashion to the most proximal portion of the cystocele. The vaginal epithelium was then trimmed and a edges reapproximated with a running suture of 2-0 Vicryl. At the completion of the procedure the anterior colporrhaphy suture site was hemostatic The patient was then placed in dorsal supine position, awakened, extubated, and transported recovery area in stable condition. All sponge lap needle counts correct x2.
[2019-09-10] MEDS: Mometasone 220 MCG 14 DOSE INHALER IH (21:03)
[2019-09-10] MEDS: Docusate Sodium 100 MG CAP PO (21:04)
--- NOTE | 2019-09-10 22:23 | W.PM.PROGNOT ---
Date of Service Date of service: 09/10/19 Time of Service: 22:23 Assessment and Plan Assessment and plan (1) Acute urinary retention: Status: Acute Assessment and plan: Will attempt a voiding trial in the morning. (2) Hx of vaginal surgery: Status: Acute Assessment and plan: Minimal vaginal bleeding. Continue to offer pain medicine as needed. Plan discharge in the morning Subjective Subjective Patient reports: feels better, pain is less and tolerating a regular diet; denies nausea and vomiting Interval history since last seen: Patient reports pain is now a 5 on a scale of 1-10. She received oxycodone in addition to ibuprofen immediately after admission to the Medr unit. Her nausea has subsided. She continues to have the Xiong catheter gravity drainage. Minimal bright red blood on sindhu-pad. She plans to use her CPAP to assist her with sleep while hospitalized. Exam Const General: no acute distress and anxious Resp Effort & Inspection: normal respiratory effort and able to speak in complete sentences Auscultation: clear to auscultation bilaterally Cardio Rate: regular rate Rhythm: regular rhythm General: deferred Other: Clear demetrius urine in the Xiong catheter. Skin General skin exam: no rashes or lesions noted Lesions: no lesions Extrem General: normal to inspection Objective Objective Clinical Data: Vital Signs Temperature 98.1 F 09/10/19 21:07 Temperature Source Tympanic 09/10/19 21:07 Pulse 82 09/10/19 21:07 Pulse Rhythm Regular 09/10/19 21:07 Respiratory Rate 16 09/10/19 21:07 Respiratory Effort Non-Labored 09/10/19 21:07 Respiratory Depth Normal 09/10/19 21:07 Respiratory Pattern Normal 09/10/19 21:07 Blood Pressure 94/63 L 09/10/19 21:07 Pulse Oximetry 95 09/10/19 21:07 Respiratory End-tidal CO2 33 09/10/19 09:47 Oxygen Delivery Method Room Air 09/10/19 21:07 Oxygen Flow Rate 0 09/10/19 21:07 Pain Level 8 09/10/19 21:07 Intake & Output 09/09/19 09/10/19 09/10/19 23:59 11:59 23:59 Intake Total 1677.083 / 1827.083 150 / 1827.083 Output Total 200 / 2425 2225 / 2425 Balance 1477.083 / -597.917 -2075 / -597.917 Weight 246 lb 246 lb 14.684 oz 246 lb 14.684 oz Intake: IV 1327.083 / 1327.083 Oral 350 / 500 150 / 500 Output: Urine 200 / 2425 2225 / 2425 Other: Urine Color Yellow Yellow Urine Appearance Clear Clear Comment installed by at the bedside Emesis Description None None
[2019-09-11 03:44] VITALS: BP 133/83; PULSE 76; RESP 18; TEMP 37; O2SAT 96
[2019-09-11] MEDS: Ibuprofen 600 MG TAB PO (03:53)
[2019-09-11] MEDS: Levothyroxine 125 MCG TAB PO (06:09)
--- NOTE | 2019-09-11 06:55 | W.PM.PROGNOT ---
Date of Service Date of service: 09/11/19 Time of Service: 06:55 Assessment and Plan Assessment and plan (1) Acute urinary retention: Status: Acute Assessment and plan: Xiong catheter out after instillation of sterile saline. Patient voided around the Xiong catheter as a saline was being instilled. Will do bladder scans after each spontaneous void to assess her ability to empty her bladder. (2) Hx of vaginal surgery: Status: Acute Assessment and plan: If patient is able to void spontaneously with no significant residual will discharge patient to home today Subjective Subjective Patient reports: feels better and still having pain (Occasional bladder spasms with Xiong in place) Interval history since last seen: Slept with CPAP last night. Exam Narrative Exam Narrative: Postop day #1 after anterior colporrhaphy. Patient experienced inability to void in the postop period and was catheterized for a 1200 cc of clear demetrius urine. Her initial desire to stay postop was related to passage of clots from her vagina. Her vaginal incision was inspected and the covering area and was intact with no active bleeding. This morning I instilled 120 cc out sterile saline into her bladder. She did not hold the urine and instead urinated around the catheter. I remove the catheter and instructed her to attempt to void spontaneously every 2 hours today. She is aware that if she is unable to pass her urine spontaneously she will require a Xiong catheter at home. Resp Effort & Inspection: normal respiratory effort Auscultation: clear to auscultation bilaterally Cardio Rate: regular rate Rhythm: regular rhythm Other: I did not examine the inside of the vagina today minimal drainage on the patient's adult undergarment Extrem General: normal to inspection and full ROM Objective Objective Clinical Data: Vital Signs Temperature 98.6 F 09/11/19 03:44 Temperature Source Tympanic 09/11/19 03:44 Pulse 76 09/11/19 03:44 Pulse Rhythm Regular 09/10/19 23:50 Respiratory Rate 18 09/11/19 03:44 Respiratory Effort Non-Labored 09/10/19 23:50 Respiratory Depth Normal 09/10/19 23:50 Respiratory Pattern Normal 09/10/19 23:50 Blood Pressure 133/83 09/11/19 03:44 Pulse Oximetry 96 09/11/19 03:44 Respiratory End-tidal CO2 33 09/10/19 09:47 Oxygen Delivery Method Room Air 09/11/19 03:44 Oxygen Flow Rate 0 09/11/19 03:44 Pain Level 6 09/11/19 03:53 Intake & Output 09/10/19 09/10/19 09/11/19 11:59 23:59 11:59 Intake Total 1677.083 / 2377.083 700 / 2377.083 Output Total 200 / 2425 2225 / 2425 700 / 700 Balance 1477.083 / -47.917 -1525 / -47.917 -700 / -700 Weight 246 lb 14.684 oz 246 lb 14.684 oz Intake: IV 1327.083 / 1877.083 550 / 1877.083 Oral 350 / 500 150 / 500 Output: Urine 200 / 2425 2225 / 2425 700 / 700 Other: Urine Color Yellow Yellow Yellow Urine Appearance Clear Clear Clear Comment installed by at the bedside Emesis Description None None
[2019-09-11 07:20] VITALS: BP 110/72; PULSE 64; RESP 16; TEMP 36.9; O2SAT 96
[2019-09-11] MEDS: Mometasone 220 MCG 14 DOSE INHALER IH (08:05)
[2019-09-11] MEDS: Carbidopa 25/Levodopa 100 TAB PO (08:18)
[2019-09-11] MEDS: Montelukast 10 MG TAB PO (08:18)
[2019-09-11] MEDS: Docusate Sodium 100 MG CAP PO (08:18)
[2019-09-11] MEDS: Normal Saline Flush 10 ML SYR IV (08:19)
[2019-09-11 11:21] VITALS: BP 116/79; PULSE 62; RESP 24; TEMP 36.7; O2SAT 96
--- NOTE | 2019-09-11 12:53 | W.NUTCONSULT ---
Date of service: 09/11/19 Time of Service: 13:02 Nutritional Consult ASSESSMENT: 85 year old male with dehydration, retroperitoneal mass receiving IV fluids. Following regular meal plan with adequate po intake. Not considered at nutritional risk at this time. Recent labs indicate low sodium and low albumin but most likely secondary to IV fluid administration. Will monitor trends and intervene as needed MONITORING AND EVALUATION: will monitor weight, po intake and lab values and interevene as warranted. Time Spent in Nutritional Counseling and Treatment: 0 time spent face to face
--- NOTE | 2019-09-11 13:55 | W.NUTCONSULT ---
Date of service: 09/11/19 Time of Service: 13:56 Nutritional Consult ASSESSMENT: 59 year old female with urinary retention. Following regular meal plan with excellent po intake. not considered at nutritional risk. will follow prn. MONITORING AND EVALUATION: will monitor po intake and weight trends and intervene as needed Time Spent in Nutritional Counseling and Treatment: 0 time spent face to face
--- NOTE | 2019-09-11 15:04 | CHAPLAIN ---
Rosa Isela had just finished walking around the hallway when I stopped in. She is worried about getting home and getting back to work but says she knows that she has limitations on what she can do. Her friend Destiney was with and was going to drive Rosa Isela home. Rosa Isela explained a bit about her procedure to me. She clearly likes and trusts. Dr. Lawler.
--- NOTE | 2019-09-11 16:12 | PDOC.CMDIS ---
- If Service Date Differs Date of service: 09/11/19 Time of Service: 16:12 LACE Index Scoring Tool - Questions: Length of Stay (in days): 1 Acuity (Admit via E.D.?): No E.D. Visits: 0 - Answers: Total Score: 1 Risk of Readmission: Low Risk Care Management Discharge Reason for Hospitalization: Anterior colporrhaphy Discharge Plan: Rosa Isela will be discharged home with no new services. She will follow up with her surgeon and discharge plan of jeremy. She will transport via private vehicle with her friend. Patient/Family Education Needs: Discharge plan, limitations, follow up plan, Ask Me Three.
--- NOTE | 2019-09-11 16:15 | PDOC.CMPRO ---
- If Service Date Differs Date of service: 09/11/19 Time of Service: 16:15 Care Management Progress Note Rosa Isela was dressed and ready to leave when CM came to see her. She denied the need for any services at home. Rosa Isela stated that she feels that she has has everything she needs and friends that will help her.
== END 2019-09-11 14:03 | disposition home or self-care (01) ==
LOC: MS 14:30
PROVIDERS: Admitting Provider Obstetrics & Gynecology Gynecology; PCP Internal Medicine; Visit Provider Obstetrics & Gynecology Gynecology
PROC: 0JQC0ZZ Repair Pelvic Region Subcutaneous Tissue and Fascia, Open Approach (ICD-10-PCS; CPT 57260; principal; 2019-09-10 07:30)
DX: N99.820 Postprocedural hemorrhage of a genitourinary system organ or structure following a genitourinary system procedure (principal); N99.89 Other postprocedural complications and disorders of genitourinary system; R33.8 Other retention of urine; K21.9 Gastro-esophageal reflux disease without esophagitis; G47.33 Obstructive sleep apnea (adult) (pediatric); N81.10 Cystocele, unspecified; E03.9 Hypothyroidism, unspecified
CPT/HCPCS: 57240; 94640; 99231; NC; G0378; J0690; J2250; J3010

== ENCOUNTER 2019-09-13 09:11 | Emergency (ER) | payer MEDICAID, SELFPAY ==
--- NOTE | 2019-09-13 09:14 | ED.GENADUL_ITS ---
Discharge Plan Disposition Patient Disposition: HOME Condition: Stable Discharge Details Chief Complaint: Abd Prob Clinical Impression: Fecal impaction Primary Care Provider: Sofía Cox ED Provider: Johnson Mendez Home Meds and New Rx's Prescriptions: Continued cholecalciferol (vitamin D3) 2,000 unit capsule 2,000 unit PO DAILY Qty: 90 RF: 3 ibuprofen 800 mg tablet 800 mg PO Q8H PRN (Reason: pain) Qty: 60 RF: 1 doxycycline monohydrate 50 mg tablet 25 mg PO BID RF: 0 docusate sodium 100 mg tablet 100 mg PO QHS RF: 0 carbidopa-levodopa [Sinemet] 25-100 mg tablet 2 tab PO TID Qty: 540 RF: 3 glucosamine sulfate 2KCl 1,000 MG tablet 1,000 mg PO DAILY RF: 0 omega-3 fatty acids-fish oil 1 EACH capsule 1 ea PO DAILY RF: 0 aspirin [Aspir-81] 81 MG tablet,delayed release (DR/EC) 81 mg PO DAILY RF: 0 cinnamon bark 500 MG capsule 500 mg PO BID RF: 0 montelukast [Singulair] 10 mg tablet 10 mg PO DAILY Qty: 90 RF: 4 loratadine [Claritin] 10 mg tablet 10 mg PO DAILY Qty: 90 RF: 4 levothyroxine 125 mcg capsule 125 mcg PO DAILY Qty: 90 RF: 2 Flovent HFA 110 mcg/actuation HFA aerosol inhaler 2 puff Inhalation BID Qty: 1 RF: 11 multivitamin with minerals [Hair,Skin and Nails] Tablet 1 tab PO DAILY RF: 0 vitamin E 1,000 unit Capsule 2 ea PO RF: 0 Discharge Instructions Instructions: Constipation (ED) Additional Instructions: Continue frequent sips of fluids to maintain hydration, fruits and vegetables to aid in fiber in the diet. Continue stool softeners. Follow-up with Dr. Lawler as previously planned for recheck. Return to the emergency department for any acute concerns. Rest at home the remainder of the day. Medical Decision Making 59-year-old female who is postop day #3 status post cystocele repair. She has had some intermittent constipation in the past and now is been struggling with production of stool this morning with sensation there is a stool ball/impaction. No fever or vomiting. She has otherwise been recovering from the surgery without difficulty. Patient was examined with a large stool ball in the rectal vault. She was placed on a bottomless commode, and with gentle digital rectal stimulation I was able to dislodge a large stool ball. Patient improved. She will continue her stool softeners. She is ready for discharge home at this time. HPI General Mode of arrival: ambulatory . Date/Time Provider Initiated Documentation: 09/13/19 09:14 . Limitations to Documentation: no limitations . Information obtained by: patient . History of Present Illness 59 year old F presents to the emergency department with the chief complaint of Constipation, described as moderate, Quality is described as dull and constant, and is localized to the abdomen and pelvis. Patient reports no radiation. Patient started experiencing this hour(s) and it has been constant. No relieving factors improve symptom(s), Patient did receive the following treatments prior to arrival, none Related Data Home Medications Medication Instructions Recorded Confirmed glucosamine sulfate 2KCl 1,000 mg PO DAILY 12/22/13 09/13/19 omega-3 fatty acids-fish oil 1 ea PO DAILY 12/22/13 09/13/19 aspirin [Aspir-81] 81 mg PO DAILY tab-cap 11/09/14 09/13/19 cinnamon bark 500 mg PO BID 05/17/16 09/13/19 multivitamin with minerals 1 tab PO DAILY 08/09/18 09/13/19 [Hair,Skin and Nails] vitamin E 2 ea PO 08/12/18 09/09/19 montelukast 10 mg tablet 10 mg PO DAILY #90 tab-cap 10/02/18 09/13/19 loratadine 10 mg tablet 10 mg PO DAILY #90 tab-cap 01/28/19 09/13/19 cholecalciferol (vitamin D3) 50 2,000 unit PO DAILY #90 cap 02/26/19 09/13/19 mcg (2,000 unit) capsule levothyroxine 125 mcg capsule 125 mcg PO DAILY #90 cap 05/22/19 09/13/19 fluticasone propionate 110 2 puff INHALATION BID #1 inhaler 06/19/19 09/13/19 mcg/actuation HFA aerosol inhaler doxycycline monohydrate 50 mg 25 mg PO BID tab 08/25/19 09/13/19 tablet carbidopa 25 mg-levodopa 100 mg 2 tab PO TID #540 tab 09/09/19 09/13/19 tablet docusate sodium 100 mg tablet 100 mg PO QHS tab 09/09/19 09/13/19 ibuprofen 800 mg tablet 800 mg PO Q8H PRN #60 tab 09/11/19 09/13/19 Previous Rx's Medication Instructions Recorded montelukast 10 mg tablet 10 mg PO DAILY #90 tab-cap 10/02/18 loratadine 10 mg tablet 10 mg PO DAILY #90 tab-cap 01/28/19 cholecalciferol (vitamin D3) 50 2,000 unit PO DAILY #90 cap 02/26/19 mcg (2,000 unit) capsule levothyroxine 125 mcg capsule 125 mcg PO DAILY #90 cap 05/22/19 fluticasone propionate 110 2 puff INHALATION BID #1 inhaler 06/19/19 mcg/actuation HFA aerosol inhaler carbidopa 25 mg-levodopa 100 mg 2 tab PO TID #540 tab 09/09/19 tablet ibuprofen 800 mg tablet 800 mg PO Q8H PRN #60 tab 09/11/19 Allergies Allergy/AdvReac Type Severity Reaction Status Date / Time acetaminophen [From [facility]] Allergy Intermediate Swelling/Ed Verified 09/13/19 09:08 rosalia Review of Systems Narrative: 6 systems reviewed and otherwise negative [facility] Medical History Asthma (Chronic) mild persistent in combination with moderately-severe restrictive lung disease Chronic constipation (Acute) Cystocele, midline (Chronic) used #4 ring with support pessary. 09/10/19. anterior colporrhaphy GERD (gastroesophageal reflux disease) (Chronic) Hypothyroid (Chronic) She needs a new TSH as her last one was elevated in November and her synthoid dose was changed. Increased body mass index (Acute) Midline cystocele (Acute 02/18/13) Obstructive sleep apnea (Acute) 03/30/16[place] [place] Osteopenia (Chronic) Ordered after fractured femur right hip T score-0.2, lumbar spine T score- 1.3. Sigmoid diverticulosis (Chronic) Vitamin D deficiency (Chronic) Vitiligo Surgical History Cholecystectomy (Inactive 07/18/11) Colonoscopy planned (Inactive ~08/12/18) Dr Guerra: diverticulosis, internal hemorrhoids Cystectomy, Mini Lap Ovarian (Inactive 02/15/11) LEFT OVARIAN CYST Debridement, Soft Tissue (Resolved) 08/14/15; DR. BERKOWITZ; LEFT DORSAL HAND ABSCESS H/O colonoscopy (Inactive 08/17/08) Dr Elmer Koroma, negative, repeat in 10 years History of esophagogastroduodenoscopy (EGD) (Inactive 05/18/11) Dr Elmer Koroma History of vein stripping (Acute) Hx of fracture of femur (Acute 01/24/18) post open reduction and internal fixation of L femoral neck fracture treated with cannulated screws Hx of vaginal surgery (Acute) 09/10/2019 anterior colporrhaphy. Uterus remains. Status post cholecystectomy (Acute) Status post incision and drainage (Acute 08/14/15) Status post ovarian cystectomy (Acute) STRESS TEST (Resolved 01/23/14) VEIN STRIPPING (Resolved) 05/13/03 X 2; 02/15/11 Family History Mother , [place] OR SUICIDE at age 47. No problems noted. Father Alcohol abuse Grandmother No problems noted. Brother No problems noted. Son No problems noted. Son No problems noted. Daughter No problems noted. Social History Smoking/Tobacco Use Status: Never Second Hand Exposure: No Alcohol Intake: never Drug use: Never Substance use type: does not use Caregiver/Support person: No Household members: other Details: D-lives alone. 2 sons and a daughter who lives in the area Housing: house Number of Children: 3 Communication Needs: None Education Level: high school Pets and animals: Yes Pets and animals: cat(s) Sexually active: No Current gender identity: decline to answer What is your relationship status?: How often do you talk on the phone with friends or family?: decline to answer How often do you get together with friends or relatives?: decline to answer How often do you attend denominational or caodaism services?: decline to answer Do you belong to any clubs or organized social groups?: decline to answer Panel score (0-1 are the most socially isolated patients): 0 What type of physical activity do you participate in: swimming Duration: decline to answer Frequency: 3-4 times per week Veronika/Sikhism: Muslim Special veronika needs: No Seatbelt use: always Drive intox or ride w/intox pile driver operator barge mounted: No Do you feel safe at home: Yes Do you feel safe in your relationship?: Yes History History 3 Para Hx # Term Pregnancies 3 Multiple births Hx # Pregnancies Ectopic pregnancies AB induced Hx Number of Living Children AB spontaneous Exam Narrative Exam Narrative: GEN: awake, alert, oriented 3. Pleasant, well groomed, interactive. HEAD: Normocephalic, atraumatic ENT: Mucous membranes moist, oropharynx unremarkable, External ear exam unremarkable EYES: PERRL, EOMI NECK: Full ROM, no ERNA, no menigismus CHEST/RESP: Nontender, clear to auscultation bilateral, no wheeze/rhonchi/rales CARDIOVASCULAR: RRR, no murmur, rub vy. 2+ Rad pulse bilateral ABDOMEN: Soft, nontender, no mass. +Bowel sounds. Large stool ball present in the rectum. EXT: Full ROM, no edema, no rash Neuro: Grossly normal neurologic exam, conversant, interactive. Psych: Speech fluent, thoughts congruent, affect normal
[2019-09-13 09:15] VITALS: BP 134/73; PULSE 78; RESP 16; TEMP 36.8; O2SAT 98
== END 2019-09-13 09:59 | disposition home or self-care (01) ==
LOC: ER 10:12
PROVIDERS: Emergency Provider Emergency Medicine; PCP Internal Medicine
DX: K56.41 Fecal impaction (principal); Z87.42 Personal history of other diseases of the female genital tract
CPT/HCPCS: 99282

== ENCOUNTER 2019-10-05 08:52 | Emergency (ER) | payer MEDICAID, SELFPAY ==
[2019-10-05 08:57] VITALS: BP 116/74; PULSE 93; RESP 18; TEMP 36.6; O2SAT 96
--- NOTE | 2019-10-05 09:24 | W.ED.GENAD ---
Discharge Plan Disposition Patient Disposition: HOME Discharge Details Chief Complaint: Abd Prob Clinical Impression: Constipation Primary Care Provider: Sofía Cox ED Provider: Ha Cole Home Meds and New Rx's Prescriptions: New polyethylene glycol 3350 [Miralax] 17 gram/dose powder 17 gm PO DAILY Qty: 119 RF: 0 No Action cholecalciferol (vitamin D3) 2,000 unit capsule 2,000 unit PO DAILY Qty: 90 RF: 3 ibuprofen 800 mg tablet 800 mg PO Q8H PRN (Reason: pain) Qty: 60 RF: 1 docusate sodium 100 mg tablet 200 mg PO QHS RF: 0 glucosamine sulfate 2KCl 1,000 MG tablet 1,000 mg PO DAILY RF: 0 omega-3 fatty acids-fish oil 1 EACH capsule 1 ea PO DAILY RF: 0 cinnamon bark 500 MG capsule 500 mg PO BID RF: 0 montelukast [Singulair] 10 mg tablet 10 mg PO DAILY Qty: 90 RF: 4 loratadine [Claritin] 10 mg tablet 10 mg PO DAILY Qty: 90 RF: 4 levothyroxine 125 mcg capsule 125 mcg PO DAILY Qty: 90 RF: 2 Flovent HFA 110 mcg/actuation HFA aerosol inhaler 2 puff Inhalation BID Qty: 1 RF: 11 carbidopa-levodopa [Sinemet] 25-100 mg tablet 2 tab PO TID Qty: 540 RF: 3 multivitamin with minerals [Hair,Skin and Nails] Tablet 1 tab PO DAILY RF: 0 vitamin E 1,000 unit Capsule 2 ea PO DAILY RF: 0 Discharge Instructions Instructions: Constipation (ED) Additional Instructions: At this point I would like you to discontinue your Metamucil home and start taking MiraLAX in the morning as directed. Continue with the docusate at bedtime. You may also give a trial of rectal suppositories [id number] throughout the day. Continue with adequate oral hydration. Contact your primary care provider regarding your ongoing constipation and its possible correlation with your Parkinson's medication. Referrals: Sofía Cox MD [Primary Care Provider] - 1 day Medical Decision Making This is a nontoxic-appearing 59-year-old female presenting to the emergency department with ongoing signs of constipation. He has notable fecal impaction on digital rectal exam. Vital signs are stable. Rest of her exam is normal and is without abdominal pain. X-ray shows significant stool burden throughout the entire colon. She is already on Metamucil and docusate. Her symptoms seem to have started roughly around the same time she started carbidopa/levodopa. We were able to get moderate relief with soapsuds enema here in the emergency department. We discussed discontinuing her Metamucil and starting MiraLAX. I have also recommended [id number] suppositories. She should follow-up with her primary care provider should her constipation symptoms persist. HPI General Date/Time Provider Initiated Documentation: 10/05/19 09:01. HPI Narrative: Patient is a 59-year-old female with a significant history for Parkinson's disease status post recent cystocele repair who presents to the emergency department with ongoing constipation x1 week. She had similar symptoms roughly 2 weeks prior to arrival where she was seen here in the emergency department and had a manual disimpaction with good effect. She states that her constipation issues is been ongoing since the initiation of her Parkinson's medication. She denies any nausea or vomiting. No severe abdominal pain. She does admit to some slight distention of the lower abdomen. No urinary symptoms. Related Data Home Medications Medication Instructions Recorded Confirmed glucosamine sulfate 2KCl 1,000 mg PO DAILY 12/22/13 10/05/19 omega-3 fatty acids-fish oil 1 ea PO DAILY 12/22/13 10/05/19 cinnamon bark 500 mg PO BID 05/17/16 10/05/19 multivitamin with minerals 1 tab PO DAILY 08/09/18 10/05/19 [Hair,Skin and Nails] vitamin E 2 ea PO DAILY 08/12/18 10/05/19 montelukast 10 mg tablet 10 mg PO DAILY #90 tab-cap 10/02/18 10/05/19 loratadine 10 mg tablet 10 mg PO DAILY #90 tab-cap 01/28/19 10/05/19 cholecalciferol (vitamin D3) 50 2,000 unit PO DAILY #90 cap 02/26/19 10/05/19 mcg (2,000 unit) capsule levothyroxine 125 mcg capsule 125 mcg PO DAILY #90 cap 05/22/19 10/05/19 fluticasone propionate 110 2 puff INHALATION BID #1 inhaler 09/19/19 01/05/20 mcg/actuation HFA aerosol inhaler docusate sodium 100 mg tablet 200 mg PO QHS tab 09/09/19 10/05/19 ibuprofen 800 mg tablet 800 mg PO Q8H PRN #60 tab 09/11/19 10/05/19 carbidopa 25 mg-levodopa 100 mg 2 tab PO TID #540 tab 09/15/19 10/05/19 tablet polyethylene glycol 3350 [Miralax] 17 gm PO DAILY #119 gm 10/05/19 Previous Rx's Medication Instructions Recorded montelukast 10 mg tablet 10 mg PO DAILY #90 tab-cap 10/02/18 loratadine 10 mg tablet 10 mg PO DAILY #90 tab-cap 01/28/19 cholecalciferol (vitamin D3) 50 2,000 unit PO DAILY #90 cap 02/26/19 mcg (2,000 unit) capsule levothyroxine 125 mcg capsule 125 mcg PO DAILY #90 cap 05/22/19 fluticasone propionate 110 2 puff INHALATION BID #1 inhaler 06/19/19 mcg/actuation HFA aerosol inhaler ibuprofen 800 mg tablet 800 mg PO Q8H PRN #60 tab 09/11/19 carbidopa 25 mg-levodopa 100 mg 2 tab PO TID #540 tab 09/15/19 tablet polyethylene glycol 3350 [Miralax] 17 gm PO DAILY #119 gm 10/05/19 Allergies Allergy/AdvReac Type Severity Reaction Status Date / Time acetaminophen [From [facility]] Allergy Intermediate Swelling/Ed Verified 10/05/19 09:01 rosalia General Stated Complaint: Abd Prob ALEKS: 3 Review of Systems Constitutional Constitutional: Denies fatigue, Denies fever(s) and Denies lethargy Cardiovascular Cardiovascular: Denies chest pain, Denies pedal edema and Denies dyspnea Respiratory Respiratory: Denies dyspnea Gastrointestinal Gastrointestinal: Denies abdominal pain, Denies melena, Denies bloating, Reports constipation, Reports cramping, Denies fecal incontinence, Denies diarrhea, Denies nausea and Denies vomiting Genitourinary Genitourinary: Denies dysuria Endocrine Endocrine: Denies fatigue [facility] Medical History Asthma (Chronic) mild persistent in combination with moderately-severe restrictive lung disease Chronic constipation (Acute) Cystocele, midline (Chronic) used #4 ring with support pessary. 12/11/19. anterior colporrhaphy GERD (gastroesophageal reflux disease) (Chronic) Hypothyroid (Chronic) She needs a new TSH as her last one was elevated in November and her synthoid dose was changed. Increased body mass index (Acute) Midline cystocele (Acute 02/18/13) Obstructive [place] apnea ([place] [place] Osteopenia (Chronic) Ordered after fractured femur right hip T score-0.2, lumbar spine T score-1.3. Sigmoid diverticulosis (Chronic) Vitamin D deficiency (Chronic) Vitiligo Surgical History Cholecystectomy (Inactive 07/18/11) Colonoscopy planned (Inactive ~08/12/18) Dr Guerra: diverticulosis, internal hemorrhoids Cystectomy, Mini Lap Ovarian (Inactive 02/15/11) LEFT OVARIAN CYST Debridement, Soft Tissue (Resolved) 08/14/15; DR. BERKOWITZ; LEFT DORSAL HAND ABSCESS H/O colonoscopy (Inactive 08/17/08) Dr Elmer Koroma, negative, repeat in 10 years History of esophagogastroduodenoscopy (EGD) (Inactive 05/18/11) Dr Elmer Koroma History of vein stripping (Acute) Hx of fracture of femur (Acute 01/24/18) post open reduction and internal fixation of L femoral neck fracture treated with cannulated screws Hx of vaginal surgery (Acute) 09/10/2019 anterior colporrhaphy. Uterus remains. Status post cholecystectomy (Acute) Status post incision and drainage (Acute 08/14/15) Status post ovarian cystectomy (Acute) STRESS TEST (Resolved 01/23/14) VEIN STRIPPING (Resolved) 05/13/03 X 2; 02/15/11 Family History Mother , [place] OR SUICIDE at age 47. No problems noted. Father Alcohol abuse Grandmother No problems noted. Brother No problems noted. Son No problems noted. Son No problems noted. Daughter No problems noted. Social History Smoking/Tobacco Use Status: Never Second Hand Exposure: No Alcohol Intake: never Drug use: Never Substance use type: does not use Caregiver/Support person: No Household members: other Details: D-lives alone. 2 sons and a daughter who lives in the area Housing: house Number of Children: 3 Communication Needs: None Education Level: high school Pets and animals: Yes Pets and animals: cat(s) Sexually active: No Current gender identity: decline to answer What is your relationship status?: How often do you talk on the phone with friends or family?: decline to answer How often do you get together with friends or relatives?: decline to answer How often do you attend shinto or quaker services?: decline to answer Do you belong to any clubs or organized social groups?: decline to answer Panel score (0-1 are the most socially isolated patients): 0 What type of physical activity do you participate in: swimming Duration: decline to answer Frequency: 3-4 times per week Veronika/Cheondoism: Yazidism Special veronika needs: No Seatbelt use: always 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 Do you feel safe at home: Yes Do you feel safe in your relationship?: Yes History History 3 Para Hx # Term Pregnancies 3 Multiple births Hx # Pregnancies Ectopic pregnancies AB induced Hx Number of Living Children AB spontaneous Exam Const General: cooperative, healthy appearing and comfortable Nutritional Appearance: average body habitus Orientation: alert, awake and oriented x3 HENMT Head: normal to inspection General nose exam: external nose normal Neck Neck: normal visual inspection and full ROM Chest Chest: normal inspection of the chest and normal palpation of entire chest wall Resp Effort & Inspection: normal respiratory effort and able to speak in complete sentences Auscultation: clear to auscultation bilaterally Cardio Jugular venous pressure: no JVD Rate: regular rate Rhythm: regular rhythm GI Inspection: normal to inspection Palpation: soft and nontender Rectal Exam - female: normal sphincter tone and fecal impaction Skin General skin exam: no rashes or lesions noted Course Vital Signs Vital signs: Vital Signs Temperature 36.6 C 10/05/19 08:57 Pulse 93 H 10/05/19 08:57 Respiratory Rate 18 10/05/19 08:57 Blood Pressure 116/74 10/05/19 08:57 Pulse Oximetry 96 10/05/19 08:57 Temperature 36.6 C 10/05/19 08:57 Temperature Source Skin 10/05/19 08:57 Pulse 93 H 10/05/19 08:57 Respiratory Rate 18 10/05/19 08:57 Respiratory Effort Non-Labored 10/05/19 08:57 Blood Pressure 116/74 10/05/19 08:57 Blood Pressure Position Sitting 10/05/19 08:57 Pulse Oximetry 96 10/05/19 08:57 Oxygen Delivery Method Room Air 10/05/19 08:57 Oxygen Flow Rate 0 10/05/19 08:57 Pain Level 6 10/05/19 08:57
--- NOTE | 2019-10-05 09:46 | DI.RAD_ITS ---
EXAM: XR ABDOMEN FLAT PLATE INDICATION: severe constipation x 1 wk. COMPARISON: No exams were available for comparison TECHNIQUE: 2D digital imaging was performed. FINDINGS: There is a large quantity of stool seen throughout the colon, consistent with constipation. There is no significant small bowel or gastric distension. Hardware is seen in the left proximal femur. IMPRESSION: Findings consistent with constipation.
--- NOTE | 2019-10-05 10:26 | DI.VRAD_ITS ---
PROCEDURE INFORMATION: Exam: XR Abdomen, 1 View Exam date and time: 10/05/2019 9:50 AM Age: 59 years old Clinical indication: Patient HX: Severe constipation x1 week TECHNIQUE: Imaging protocol: XR of the abdomen. Views: Frontal supine view of the abdomen. 1 View. COMPARISON: CR ABDOMEN FLAT PLATE 03/12/2017 3:35 PM FINDINGS: Gastrointestinal tract: Constipation in the right colon and left colon Bones/joints: Degenerative changes in the right hip. Screws in the left hip IMPRESSION: Constipation in the right colon and left colon Dictated and Authenticated by: Eric Hallman MD. Ordering:LUCINDA Bonner MD
== END 2019-10-05 11:14 | disposition home or self-care (01) ==
PROVIDERS: Emergency Provider Physician Assistant; PCP Internal Medicine
DX: K59.00 Constipation, unspecified (principal); G20 Parkinson's disease
CPT/HCPCS: 99283; 74018

== ENCOUNTER 2019-10-13 20:54 | Outpatient (REF) | payer MEDICAID, SELFPAY | END 2019-10-13 21:14 | LOC: LBN 20:54 | PROVIDERS: PCP Internal Medicine; Visit Provider Internal Medicine | DX: N39.0 Urinary tract infection, site not specified (principal) | CPT/HCPCS: 87077; 87086; 87186 ==

== ENCOUNTER 2019-11-03 17:00 | Outpatient (REF) | payer MEDICAID, SELFPAY | END 2019-11-03 17:20 | LOC: LBN 17:00 | PROVIDERS: PCP Internal Medicine | DX: N39.0 Urinary tract infection, site not specified (principal) | CPT/HCPCS: 87086 ==

== ENCOUNTER 2020-02-17 03:17 | Outpatient (CLI) | payer MEDICAID, SELFPAY ==
[2020-02-17 15:23] LABS: TSH (W/Ref FT4) 1.94 uIU/mL (0.36-3.74)
== END 2020-02-17 03:37 ==
PROVIDERS: PCP Nurse Practitioner; Visit Provider Nurse Practitioner
DX: E03.9 Hypothyroidism, unspecified (principal)
CPT/HCPCS: 36415; 84443

== ENCOUNTER 2020-03-25 01:21 | Outpatient (CLI) | payer MEDICAID, SELFPAY ==
--- NOTE | 2020-03-25 12:15 | DI.MAMMO_ITS ---
EXAM: MG MAMMO SCREENING CLINICAL HISTORY: screening Z12.39 TECHNIQUE: Mammograms were interpreted according to the usual protocol including computer analysis w [employer] CAD system, tomosynthesis and C-view imaging. COMPARISON: FINDINGS: The breasts are of moderate density. There is increased focal radiodensity in the upper outer quadra nt of left breast with an associated area of nodularity. Findings appear unchanged comparison with shiela james previous examinations including January 2019. No new mass or clumped microcalcification seen. IMPRESSION: No specific evidence of malignancy at this time. Routine screening examinations are suggested at yea rly intervals due to the family history of breast carcinoma. BI-RADS Category 1 - Negative Breast Density - Category B - Scattered areas of fibroglandular density
== END 2020-03-25 01:41 ==
PROVIDERS: PCP Nurse Practitioner; Visit Provider Obstetrics & Gynecology Gynecology
DX: Z12.31 Encounter for screening mammogram for malignant neoplasm of breast (principal); Z80.3 Family history of malignant neoplasm of breast
CPT/HCPCS: 77063; 77067

== ENCOUNTER 2020-07-27 21:39 | Outpatient (REF) | payer MEDICAID, SELFPAY ==
[2020-07-27 22:04] LABS: Bilirubin Negative (Negative); Blood Trace-intact (Negative); Clarity Cloudy (Clear); Glucose Negative (Negative); Ketones Trace mg/dL (Negative); Leukocyte Esterase Small (Negative); Nitrite Negative (Negative); Specific Gravity >= 1.030 (1.005-1.025); Urobilinogen 0.2 EU/dL (Up TO 0.2)
[2020-07-27 22:25] LABS: Bacteria Many HPF (Negative); Epithelial Cells Moderate HPF (Negative); RBC 0-2 HPF (0-2)
[2020-07-27 22:26] LABS: C & S Indicated? C&S Done As Ordered; Casts Negative LPF (Negative); Crystals Moderate Amorphous HPF (Negative); Mucus Negative (Negative)
== END 2020-07-27 21:59 ==
LOC: LBN 21:39
PROVIDERS: PCP Nurse Practitioner; Visit Provider Nurse Practitioner Family
DX: R35.0 Frequency of micturition (principal); M54.5 Low back pain
CPT/HCPCS: 87077; 81003; 81015; 87086; 87186

== ENCOUNTER 2020-08-04 12:43 | Outpatient (REF) | payer MEDICAID, SELFPAY ==
[2020-08-04 14:06] LABS: Bilirubin Negative (Negative); Blood Trace-intact (Negative); Clarity Cloudy (Clear); Glucose Negative (Negative); Ketones Trace mg/dL (Negative); Leukocyte Esterase Large (Negative); Nitrite Positive (Negative); Specific Gravity 1.025 (1.005-1.025); Urobilinogen 0.2 EU/dL (Up TO 0.2)
[2020-08-04 14:19] LABS: WBC >50 HPF (0-5)
[2020-08-04 14:20] LABS: Bacteria Many HPF (Negative); C & S Indicated? C&S Done As Ordered
== END 2020-08-04 13:03 ==
LOC: LBN 12:43
PROVIDERS: PCP Nurse Practitioner; Visit Provider Nurse Practitioner Family
DX: N39.0 Urinary tract infection, site not specified (principal)
CPT/HCPCS: 87077; 81003; 81015; 87086; 87186

== ENCOUNTER 2020-10-07 02:51 | Outpatient (CLI) | payer MEDICAID, SELFPAY ==
[2020-10-08 10:34] LABS: HBs Antibody, Qual Negative (See Note); HBs Antibody, Quant <3.1 mIU/mL (See Note); Hepatitis B Core Antibody Negative (Negative); Hepatitis B surface Ag Negative (Negative); Hepatitis C Ab w Rflx HCV PCR Negative (Negative)
== END 2020-10-07 03:11 ==
PROVIDERS: PCP Nurse Practitioner; Visit Provider Nurse Practitioner
DX: Z11.59 Encounter for screening for other viral diseases (principal)
CPT/HCPCS: 36415; 86704; 86706; 86803; 87340

== ENCOUNTER 2020-11-06 09:06 | Emergency (ER) | payer MEDICAID, SELFPAY ==
[2020-11-06 09:11] VITALS: BP 128/97; PULSE 99; RESP 16; TEMP 36.5; O2SAT 98
--- NOTE | 2020-11-06 09:22 | ED.GENADUL_ITS ---
Discharge Plan Disposition Patient Disposition: HOME Condition: Improving Discharge Details Clinical Impression: Constipation Primary Care Provider: Vania Vasquez ED Provider: Johnson Mendez Home Meds and New Rx's Prescriptions: Continued polyethylene glycol 3350 [Miralax] 17 gram/dose powder 17 gm PO DAILY Qty: 850 RF: 2 carbidopa-levodopa 25-250 mg tablet 1 tab PO TID Qty: 270 RF: 3 Flovent HFA 110 mcg/actuation HFA aerosol inhaler 2 puff Inhalation BID Qty: 1 RF: 11 calcium carbonate 600 mg calcium (1,500 mg) tablet 600 mg PO DAILY RF: 0 glucosamine sulfate 2KCl 1,000 MG tablet 1,000 mg PO DAILY RF: 0 omega-3 fatty acids-fish oil 1 EACH capsule 1 ea PO DAILY RF: 0 cinnamon bark 500 MG capsule 500 mg PO BID RF: 0 montelukast [Singulair] 10 mg tablet 10 mg PO DAILY Qty: 90 RF: 4 loratadine [Claritin] 10 mg tablet 10 mg PO DAILY Qty: 90 RF: 4 levothyroxine 125 mcg capsule 125 mcg PO DAILY Qty: 90 RF: 3 cholecalciferol (vitamin D3) 50 mcg (2,000 unit) capsule 2,000 unit PO DAILY Qty: 90 RF: 3 multivitamin with minerals [Hair,Skin and Nails] Tablet 1 tab PO DAILY RF: 0 Discharge Instructions Instructions: Constipation (ED) Additional Instructions: [id number] Colace at night, repeat again tomorrow night if constipation persists. Continue your regular medications and Metamucil. Return to ER for fever, vomiting, or any other concern. Medical Decision Making 60-year-old female with a history of constipation states she has not had a bowel movement for 4 to 5 days. She had disruption in her daily use of Metamucil to which she attributes to this. She is not had a fever or vomiting. She has otherwise been well. Her abdomen is soft. Patient asked me not to perform a rectal exam.. She was given a soapsuds enema with no stool output. I performed ROSIO with removal of soft stool ball x3. Patient had subsequent enema. She improved. She is stable for discharge to home. HPI General Mode of arrival: ambulatory . Date/Time Provider Initiated Documentation: 11/06/20 09:07 . Limitations to Documentation: no limitations . Information obtained by: patient . History of Present Illness 60 year old F presents to the emergency department with the chief complaint of Constipation, described as moderate and similar to prior episodes, Quality is described as dull, and is localized to the abdomen. Patient reports no radiation. Patient started experiencing this day(s) and it has been constant. No relieving factors improve symptom(s), No exacerbating factors reported . Patient notes denies chest pain, diaphoresis, fever/chills, loss of appetite and nausea/vomiting. Patient did receive the following treatments prior to arrival, none Related Data Home Medications Medication Instructions Recorded Confirmed glucosamine sulfate 2KCl 1,000 mg PO DAILY 12/22/13 11/06/20 omega-3 fatty acids-fish oil 1 ea PO DAILY 12/22/13 11/06/20 cinnamon bark 500 mg PO BID 05/17/16 11/06/20 multivitamin with minerals 1 tab PO DAILY 08/09/18 11/06/20 [Hair,Skin and Nails] polyethylene glycol 3350 17 17 gm PO DAILY #850 gm 10/13/19 11/06/20 gram/dose oral powder calcium carbonate 600 mg calcium 600 mg PO DAILY 10/14/19 11/06/20 (1,500 mg) tablet montelukast 10 mg tablet 10 mg PO DAILY #90 tab-cap 01/09/20 11/06/20 loratadine 10 mg tablet 10 mg PO DAILY #90 tab-cap 02/16/20 11/06/20 levothyroxine 125 mcg capsule 125 mcg PO DAILY #90 cap 02/24/20 11/06/20 fluticasone propionate 110 2 puff INHALATION BID #1 inhaler 03/02/20 11/06/20 mcg/actuation HFA aerosol inhaler carbidopa 25 mg-levodopa 250 mg 1 tab PO TID #270 tab 06/01/20 11/06/20 tablet cholecalciferol (vitamin D3) 50 2,000 unit PO DAILY #90 cap 06/10/20 11/06/20 mcg (2,000 unit) capsule Previous Rx's Medication Instructions Recorded polyethylene glycol 3350 17 17 gm PO DAILY #850 gm 10/13/19 gram/dose oral powder montelukast 10 mg tablet 10 mg PO DAILY #90 tab-cap 01/09/20 loratadine 10 mg tablet 10 mg PO DAILY #90 tab-cap 02/16/20 levothyroxine 125 mcg capsule 125 mcg PO DAILY #90 cap 02/24/20 fluticasone propionate 110 2 puff INHALATION BID #1 inhaler 03/02/20 mcg/actuation HFA aerosol inhaler carbidopa 25 mg-levodopa 250 mg 1 tab PO TID #270 tab 06/01/20 tablet cholecalciferol (vitamin D3) 50 2,000 unit PO DAILY #90 cap 06/10/20 mcg (2,000 unit) capsule Allergies Allergy/AdvReac Type Severity Reaction Status Date / Time acetaminophen [From [facility]] Allergy Intermediate Swelling/Ed Verified 10/19/20 12:19 rosalia General Stated Complaint: Abd Prob ALEKS: 4 Review of Systems Narrative: 6 systems reviewed and otherwise negative [facility] Medical History Asthma mild persistent in combination with moderately-severe restrictive lung disease Chronic constipation Cognitive developmental delay GERD (gastroesophageal reflux disease) Hypothyroid She needs a new TSH as her last one was elevated in November and her synthoid dose was changed. Increased body mass index Internal hemorrhoids Midline cystocele (02/18/13) 09/10/2019 Rx with anterior colporrhaphy Obstructive sleep apnea 03/30/16-[facility]/ON CPAP Osteopenia Ordered after fractured femur right hip T score-0.2, lumbar spine T score- 1.3. Rectocele 10/23/2019 stage I. Noted at time of postop exam following anterior colporrhaphy Sigmoid diverticulosis Vitamin D deficiency Vitiligo Surgical History Colonoscopy planned (~08/12/18) Dr Guerra: diverticulosis, internal hemorrhoids Cystocele, midline used #4 ring with support pessary. 09/10/19. anterior colporrhaphy Debridement, Soft Tissue 08/14/15; DR. BERKOWITZ; LEFT DORSAL HAND ABSCESS History of esophagogastroduodenoscopy (EGD) (05/18/11) Dr Elmer Koroma History of vein stripping Hx of fracture of femur (01/24/18) post open reduction and internal fixation of L femoral neck fracture treated with cannulated screws Hx of vaginal surgery 09/10/2019 anterior colporrhaphy. Uterus remains. Status post cholecystectomy Status post incision and drainage (08/14/15) STRESS TEST (01/23/14) VEIN STRIPPING 05/13/03 X 2; 02/15/11 Family History Mother , [place] [employer] at age 47. No problems noted. Father Alcohol abuse Grandmother No problems noted. Brother No problems noted. Son No problems noted. Son No problems noted. Daughter No problems noted. Social History Smoking/Tobacco Use Status: Never Second Hand Exposure: No Smoking risk assessment performed?: Yes Alcohol Intake: never Drug use: Never Substance use type: does not use Caregiver/Support person: No Household members: other Details: D-lives alone. 2 sons and a daughter who lives in the area Housing: house Number of Children: 3 Communication Needs: None Education Level: high school Pets and animals: Yes Pets and animals: cat(s) Sexually active: No Current gender identity: decline to answer What is your relationship status?: How often do you talk on the phone with friends or family?: decline to answer How often do you get together with friends or relatives?: decline to answer How often do you attend temple or uatsdin services?: decline to answer Do you belong to any clubs or organized social groups?: decline to answer Panel score (0-1 are the most socially isolated patients): 0 What type of physical activity do you participate in: swimming Duration: decline to answer Frequency: 3-4 times per week Veronika/Confucianism: Anabaptist Special veronika needs: No Seatbelt use: always Drive intox or ride w/intox tour bus driver/guide: No Do you feel safe at home: Yes Do you feel safe in your relationship?: Yes History History 3 Para Hx # Term Pregnancies 3 Multiple births Hx # Pregnancies Ectopic pregnancies AB induced Hx Number of Living Children AB spontaneous Exam Narrative Exam Narrative: GEN: awake, alert, oriented 3. Pleasant, well groomed, interactive. HEAD: Normocephalic, atraumatic ENT: Mucous membranes moist, oropharynx unremarkable, External ear exam unre markable EYES: PERRL, EOMI NECK: Full ROM, no ERNA, no menigismus CHEST/RESP: Nontender, clear to auscultation bilateral, no wheeze/rhonchi/rales CARDIOVASCULAR: RRR, no murmur, rub vy. 2+ Rad pulse bilateral ABDOMEN: Soft, nontender, no mass. +Bowel sounds EXT: Full ROM, no edema, no rash Neuro: Grossly normal neurologic exam, conversant, interactive. Psych: Speech fluent, thoughts congruent, affect normal Course Vital Signs Vital signs: Vital Signs Temperature 36.5 C 11/06/20 09:11 Pulse 99 H 11/06/20 09:11 Respiratory Rate 16 11/06/20 09:11 Blood Pressure 128/97 H 11/06/20 09:11 Pulse Oximetry 98 11/06/20 09:11 Temperature 36.5 C 11/06/20 09:11 Temperature Source Skin 11/06/20 09:11 Pulse 99 H 11/06/20 09:11 Respiratory Rate 16 11/06/20 09:11 Respiratory Effort 11/06/20 09:18 Blood Pressure 128/97 H 11/06/20 09:11 Blood Pressure Position Standing 11/06/20 09:11 Pulse Oximetry 98 11/06/20 09:11 Oxygen Delivery Method Room Air 11/06/20 09:11 Oxygen Flow Rate 0 11/06/20 09:11 Pain Level 6 11/06/20 09:11
--- NOTE | 2020-11-06 10:51 | NUR.NOTE ---
MD Mendez into disimpact pt. Attempted to instill more SSE, unable d/t stool. Pt up to commode. Large hard stool. Requested more SSE. Approx 300mL instilled. call james in hand.
[2020-11-06 11:19] VITALS: BP 132/97; PULSE 84; RESP 18; TEMP 36.7; O2SAT 95
== END 2020-11-06 11:39 | disposition home or self-care (01) ==
PROVIDERS: Emergency Provider Emergency Medicine; PCP Nurse Practitioner
DX: K59.09 Other constipation (principal)
CPT/HCPCS: 99282; 99283

== ENCOUNTER 2020-12-20 15:54 | Outpatient (REF) | payer MEDICAID, SELFPAY ==
--- NOTE | 2020-12-20 15:30 | PAPFT_PTH ---
PATIENT: Rosa Isela Washington LOC: [facility] U#:[id number] AGE/SX: 60/F ROOM: RE12/20/[address]: Felicia Lawler : 1960 BED: DIS: 12/20/2020 SPEC #: [id number] RECD: 12/20/20 17:27 STATUS: MIKE HENSLEY #: [id number] JONI: 12/20/20 15:[address]: Felicia Lawler DEPT: [facility] Cytology RECD BY: Marcia Becker ENTERED: 12/20/20 17:28 SP TYPE: PAPFT MADELINE DR: Vania Vasquez, PhD PHARMACY COORDINATOR Tissues: 1 - CX/ENDOCX FOR PAP SMEARS Procedures: PAP THIN PREP/UVM Screening HPV DNA PROBE Comments: [id number]
== END 2020-12-20 15:55 | disposition home or self-care (01) ==
LOC: LBN 15:54
PROVIDERS: PCP Nurse Practitioner; Visit Provider Obstetrics & Gynecology Gynecology
DX: Z12.4 Encounter for screening for malignant neoplasm of cervix (principal); Z11.51 Encounter for screening for human papillomavirus (HPV)
CPT/HCPCS: 88142; 87624

== ENCOUNTER 2021-03-14 03:09 | Outpatient (CLI) | payer MEDICAID, SELFPAY ==
[2021-03-14 12:07] LABS: Hemoglobin A1C 5.4 % (<5.7)
[2021-03-14 12:53] LABS: TSH 2.93 uIU/mL (0.36-3.74)
== END 2021-03-14 03:10 | disposition home or self-care (01) ==
LOC: LBO 03:09
PROVIDERS: PCP Nurse Practitioner; Visit Provider Nurse Practitioner
DX: R73.03 Prediabetes (principal); E03.9 Hypothyroidism, unspecified
CPT/HCPCS: 36415; 83036; 84443

== ENCOUNTER 2021-03-28 01:23 | Outpatient (CLI) | payer MEDICAID, SELFPAY ==
--- NOTE | 2021-03-28 10:45 | DI.MAMMO_ITS ---
Exam(s) MAMMO SCREENING EXAM: MAMMO SCREENING CLINICAL HISTORY: screening, Z12.39. TECHNIQUE: Bilateral full field digital CC and MLO mammographic images were obtained with 3D tomosyn thesis and utilizing computer aided detection (CAD). COMPARISON: Prior mammograms dating back to 2011, the most recent being March 2020. FINDINGS: There has been no significant change in the appearance and distribution of the fibroglandular tissue. Asymmetric tissue including nodular density in the upper-outer quadrant of breast is unchanged from a ll prior studies. There are no new spiculated masses nor malignant appearing microcalcification groups. There is no significant architectural distortion nor skin thickening-retraction. IMPRESSION: Stable benign findings. No radiographic evidence of malignancy. BI-RADS Category 2 - Benign Findings Breast Density - Category B - Scattered areas of fibroglandular density Breast density Category C or D implies that the patient has dense breast tissue. Dense breast tissue can make it harder to find cancer on a mammogram. Dense breast tissue is also associated with an incr eased risk of breast cancer. This information about the result of the mammogram report was provided to the patient to raise their awareness. Use this report when you speak with the patient about their risks for breast cancer, which includes their family history. At that time, you may recommend additional screening tests (Ultrasoun d or MRI) as these tests may add significant information. A negative radiographic report should not delay biopsy if a dominant or clinically suspicious mass is present. Up to ten percent of cancers are not identified on mammography. A negative report may reinforce clinical impression. Adenosis and dense breasts may obscure an underlying neoplasm. False positive reports average 6 to 10%. Patient will receive a letter notifying them of these results.
== END 2021-03-28 01:43 ==
PROVIDERS: PCP Nurse Practitioner; Visit Provider Obstetrics & Gynecology Gynecology
DX: Z12.31 Encounter for screening mammogram for malignant neoplasm of breast (principal); R92.8 Other abnormal and inconclusive findings on diagnostic imaging of breast
CPT/HCPCS: 77063; 77067

== ENCOUNTER 2022-03-10 01:55 | Outpatient (CLI) | payer MEDICAID, SELFPAY ==
[2022-03-10 15:01] LABS: Calculated LDL 103 mg/dL (<100); Cholesterol 161 mg/dL (<200); HDL Cholesterol 46 mg/dL (40-60); TSH (W/Ref FT4) 2.08 uIU/mL (0.36-3.74); Triglyceride 63 mg/dL (<150)
== END 2022-03-10 01:56 | disposition home or self-care (01) ==
LOC: LBO 01:55
PROVIDERS: PCP Nurse Practitioner; Visit Provider Nurse Practitioner
DX: E03.9 Hypothyroidism, unspecified (principal); Z13.220 Encounter for screening for lipoid disorders
CPT/HCPCS: 36415; 80061; 84443

== ENCOUNTER → 2022-04-14 00:18 | Outpatient (CLI) | payer MEDICAID, SELFPAY ==
--- NOTE | 2022-04-14 07:15 | DI.MAMMO_ITS ---
Exam(s) MAMMO SCREENING EXAM: MAMMO SCREENING CLINICAL HISTORY: screening,z12.39 TECHNIQUE: Bilateral full field digital CC and MLO mammographic images were obtained with 3D tomosyn thesis and utilizing computer aided detection (CAD). COMPARISON: Available for comparison. FINDINGS: Masses/Architectural Distortion: None seen. Asymmetric breast tissue in the upper-outer quadrants of both breast appears stable compared to prior examinations dating back to 2016. Microcalcifications: No suspicious pleomorphic-type are seen. Skin Thickening/Nipple Retraction: None. IMPRESSION: 1. No significant interval change with no specific features of malignancy noted. 2. Unless there is more urgent need, screening mammography is recommended, as per [employer] guidelines. BI-RADS Category 2 - Benign Findings Breast Density - Category B - Scattered areas of fibroglandular density Breast density category C or D implies that the patient has dense breast tissue. Dense breast tissue is very common and is not abnormal but dense breast tissue can make it harder to find cancer on a ma mmogram. Also, dense breast tissue may increase their breast cancer risk. This information about the result of the mammogram report was provided to the patient to raise their awareness. Use this report when you speak with the patient about their risks for breast cancer, which includes their family hist ory. At that time, you may recommend for more screening tests (Ultrasound or MRI) as they might be us eful based on their risk. A negative radiographic report should not delay biopsy if a dominant or clinically suspicious mass is present. Up to ten percent of cancers are not identified on mammography. A negative report may reinforce clinical impression. Adenosis and dense breasts may obscure an underlying neoplasm. False positive reports average 6 to 10%. Patient will receive a letter notifying them of these results.
== END ==
PROVIDERS: PCP Nurse Practitioner; Visit Provider Nurse Practitioner
DX: Z12.31 Encounter for screening mammogram for malignant neoplasm of breast (principal)
CPT/HCPCS: 77063; 77067

== ENCOUNTER → 2022-04-18 13:47 | Outpatient (CLI) | payer MEDICAID, SELFPAY ==
--- NOTE | 2022-04-18 | DI.RAD_ITS ---
Exam(s) XR FOOT LT COMPLETE EXAM: XR FOOT LT COMPLETE CLINICAL HISTORY: HAMMERTOE LEFT FOOT M20.42 TOE PAIN M79.675 CONTUSION LEFT GREAT TOE. TECHNIQUE: 2D digital imaging was performed. COMPARISON: CR LEFT FEMUR from 11/18/2017 FINDINGS: 3 views No evidence of fracture nor diastasis of the Lisfranc joint. Bone density normal. No osseous lesion s. No radiopaque foreign body. IMPRESSION: DATA REPOSITORY: RADIATION DOSE DELIVERED:
== END ==
PROVIDERS: PCP Nurse Practitioner; Visit Provider Podiatrist
DX: M20.42 Other hammer toe(s) (acquired), left foot (principal); S90.112S Contusion of left great toe without damage to nail, sequela; X58.XXXS Exposure to other specified factors, sequela
CPT/HCPCS: 73630

== ENCOUNTER 2022-06-30 17:45 | Emergency (ER) | payer MEDICAID, SELFPAY ==
[2022-06-30 17:50] VITALS: BP 125/73; PULSE 79; RESP 18; TEMP 36.7; O2SAT 95
--- NOTE | 2022-06-30 19:00 | DI.RAD_ITS ---
Exam(s) XR ABDOMEN FLAT UPRIGHT EXAM: XR ABDOMEN FLAT UPRIGHT CLINICAL HISTORY: abdominal pain. TECHNIQUE: 2D digital imaging was performed. COMPARISON: CR,XR XR ABDOMEN FLAT PLATE from 10/05/2019 FINDINGS: Two views-both supine. There is abundant fecal material throughout the length of the colon including the rectum. Probably a n element of constipation. There are 3 screws across a healed left femoral neck fracture site. There also clips in the right upper quadrant from probable prior cholecystectomy. No obvious masses nor bowel displacement. No abnormal calcifications seen over the kidneys nor along course of the ure ters. IMPRESSION: Abundant fecal material in the colon, consistent with element of probable constipation. Prior cholecystectomy and left hip fracture repair. DATA REPOSITORY: RADIATION DOSE DELIVERED:
--- NOTE | 2022-06-30 19:53 | DI.VRAD_ITS ---
PROCEDURE INFORMATION: Exam: XR Abdomen Exam date and time: 06/30/2022 7:30 PM Age: 62 years old Clinical indication: Other: Abdomen pain TECHNIQUE: Imaging protocol: Radiologic exam of the abdomen. Views: 2 Views. Upright and supine views. COMPARISON: CR XR ABDOMEN FLAT PLATE 10/05/2019 9:46 AM FINDINGS: Lungs: The visualized portions of the lung bases are unremarkable. Diaphragm: Elevation the right hemidiaphragm etiology unclear. Gastrointestinal tract: There is moderate increased colonic fecal content. The colon is mildly distended. These findings suggest a moderate degree of constipation. Clinical correlation recommended. There is a nonspecific bowel gas pattern. No evidence of bowel obstruction. Intraperitoneal space: There is no free intraperitoneal air. Organs: There has been a cholecystectomy. Probable enlargement of the liver. The the remaining organs are unremarkable. Bones/joints: There is been a left hip nailing there is a healed left subcapital femoral neck fracture. Mild degenerative changes of the lumbar spine. The spine, sacroiliac joints, and hip joints show no evidence of fracture or other acute processes. Other findings: There are no soft tissue masses or calcifications. IMPRESSION: 1. Constipation. 2. Status post cholecystectomy. 3. Probable hepatomegaly. Dictated and Authenticated by: Jaiden Mi MD. Ordering:BRENDON Kennedy MD
[2022-06-30 22:01] VITALS: BP 125/74; PULSE 107; RESP 17; TEMP 36.4; O2SAT 97
--- NOTE | 2022-07-06 10:17 | W.ED.GENAD ---
Discharge Plan Disposition Patient Disposition: HOME Condition: Stable Discharge Details Clinical Impression: Abdominal pain Primary Care Provider: Vania Vasquez ED Provider: Marcia Lee Home Meds and New Rx's Prescriptions: Continued loratadine [Claritin] 10 mg tablet 10 mg PO DAILY Qty: 90 4RF Rx Instructions: For seasonal changes montelukast [Singulair] 10 mg tablet 10 mg PO DAILY Qty: 90 4RF omeprazole 20 mg capsule,delayed release(DR/EC) 20 mg PO DAILY Qty: 90 3RF calcium carbonate 600 mg calcium (1,500 mg) tablet 600 mg PO DAILY carbidopa-levodopa [Sinemet] 25-100 mg tablet See Rx Instructions PO .COMPLEX Rx Instructions: PO; take 2 tabs at 9am, 2 tabs at 1pm, and 1 tab at 5pm carbidopa-levodopa 25-100 mg tablet extended release 1 tab PO QHS Qty: 90 3RF omega-3 fatty acids-fish oil 1 EACH capsule 1 ea PO DAILY cinnamon bark 500 MG capsule 500 mg PO BID entacapone 200 mg tablet 200 mg PO TID Qty: 270 3RF Rx Instructions: administer at the same time as l-dopa/carbidopa dose fluticasone propionate [Flovent HFA] 110 mcg/actuation HFA aerosol inhaler 2 puff Inhalation BID Qty: 1 11RF sertraline 50 mg tablet 50 mg PO DAILY Qty: 90 4RF levothyroxine 125 mcg capsule 125 mcg PO DAILY Qty: 90 1RF polyethylene glycol 3350 [Miralax] 17 gram/dose powder 17 g PO DAILY Qty: 850 12RF cholecalciferol (vitamin D3) 50 mcg (2,000 unit) capsule 2,000 unit PO DAILY Qty: 90 3RF Discharge Instructions Instructions: Constipation (DC) Additional Instructions: Use Colace daily Continue on your MiraLAX Recommend picking up proctofoam suppositories for your hemorrhoids and sitz bath return earlier should you have new or worsening complaints Referrals: Vania Vasquez, [employer] [Primary Care Provider] - Discharge Data Discharge Date/Time-TO BE ENTERED AT DEPARTURE: 06/30/22 22:03 Medical Decision Making Manual disimpaction performed by me without incident, no blood noted X-ray abdomen pelvis was reviewed without evidence of bowel obstruction or free air Patient subsequently had an enema and it was effective had bowel movements and was able to urinate in the emergency department Reports marked improvement in symptoms Discharged home in stable condition with stable vitals Radiologist interpretation reviewed were available Follow-up with primary care physician and discussion regarding colonoscopy recommended Medical Records Medical records reviewed: Yes I reviewed the patient's medical records. Lab Data Lab results reviewed: Yes I reviewed the patient's lab results. HPI General Date/Time Provider Initiated Documentation: 06/30/22 18:12. HPI Narrative: This 62 with history of Parkinson's, cognitive delay, asthma presents with report of decreased BM with history of obstipation. Patient been taking her MiraLAX as previously prescribed. She states in the past she has needed disimpaction and enema. She states she is having difficulty urinating secondary to symptoms. She has pain in her rectum but denies any abdominal pain, nausea, vomiting. She denies any fever or chills. She states this episode is similar to her previous episodes. Related Data Home Medications Medication Instructions Recorded Confirmed omega-3 fatty acids-fish oil 300 1 ea PO DAILY 12/22/13 06/30/22 mg-1,000 mg capsule cinnamon bark 500 mg capsule 500 mg PO BID 05/17/16 06/30/22 calcium carbonate 600 mg calcium 600 mg PO DAILY 10/14/19 06/30/22 (1,500 mg) tablet omeprazole 20 mg capsule,delayed 20 mg PO DAILY #90 caps 08/12/21 06/30/22 release carbidopa 25 mg-levodopa 100 mg See Rx Instructions PO .COMPLEX 11/10/21 06/30/22 tablet (Sinemet) carbidopa ER 25 mg-levodopa 100 mg 1 tab PO QHS #90 tabs 11/10/21 06/30/22 tablet,extended release entacapone 200 mg tablet 200 mg PO TID #270 tabs 12/14/21 06/30/22 fluticasone propionate 110 2 puff inhalation BID ##1 02/09/22 06/30/22 mcg/actuation HFA aerosol inhaler (Flovent HFA) loratadine 10 mg tablet (Claritin) 10 mg PO DAILY #90 tab-caps 03/07/22 06/30/22 montelukast 10 mg tablet 10 mg PO DAILY #90 tab-caps 03/07/22 06/30/22 (Singulair) sertraline 50 mg tablet 50 mg PO DAILY #90 tabs 03/09/22 06/30/22 levothyroxine 125 mcg capsule 125 mcg PO DAILY #90 tabs 05/12/22 06/30/22 polyethylene glycol 3350 17 17 g PO DAILY constipation #850 05/19/22 06/30/22 gram/dose oral powder (Miralax) grams cholecalciferol (vitamin D3) 50 2,000 unit PO DAILY #90 caps 06/06/22 06/30/22 mcg (2,000 unit) capsule Previous Rx's Medication Instructions Recorded omeprazole 20 mg capsule,delayed 20 mg PO DAILY #90 caps 08/12/21 release carbidopa ER 25 mg-levodopa 100 mg 1 tab PO QHS #90 tabs 11/10/21 tablet,extended release entacapone 200 mg tablet 200 mg PO TID #270 tabs 12/14/21 fluticasone propionate 110 2 puff inhalation BID ##1 02/09/22 mcg/actuation HFA aerosol inhaler (Flovent HFA) loratadine 10 mg tablet (Claritin) 10 mg PO DAILY #90 tab-caps 03/07/22 montelukast 10 mg tablet 10 mg PO DAILY #90 tab-caps 03/07/22 (Singulair) sertraline 50 mg tablet 50 mg PO DAILY #90 tabs 03/09/22 levothyroxine 125 mcg capsule 125 mcg PO DAILY #90 tabs 05/12/22 polyethylene glycol 3350 17 17 g PO DAILY constipation #850 05/19/22 gram/dose oral powder (Miralax) grams cholecalciferol (vitamin D3) 50 2,000 unit PO DAILY #90 caps 06/06/22 mcg (2,000 unit) capsule Allergies Allergy/AdvReac Type Severity Reaction Status Date / Time acetaminophen [From [facility]] Allergy Intermediate Swelling/Ed Verified 06/30/22 17:53 rosalia General Stated Complaint: Abd Prob ALEKS: 3 Review of Systems All systems reviewed & are unremarkable except as noted in HPI and below PFSH All Active Problems (Updated 06/30/22 @ 21:43 by EMA Payne) Abdominal pain (Acute) GERD (gastroesophageal reflux disease) (Chronic) cough is symptom Hypersomnia (Acute) part of her parkinsons Anxiety (Chronic) Prediabetes (Chronic) improved with diet- a1c 5.4% 03/2021 Cognitive developmental delay (Acute) Hypothyroid (Chronic) Increased body mass index (Acute) Obstructive sleep apnea (Acute) 03/30/16[place] [place] Parkinson disease (Chronic) Tremor (Acute) Osteopenia (Chronic) 2018 Ordered after fractured femur right hip T score-0.2, lumbar spine T score-1.3. Vitamin D deficiency (Chronic) Asthma (Chronic) mild persistent in combination with moderately-severe restrictive lung disease Medical History Chronic constipation Degenerative joint disease of left hip GERD (gastroesophageal reflux disease) Hammer toe of left foot [facility] [place] Heart murmur, systolic Internal hemorrhoids Midline cystocele (02/18/13) 09/10/2019 Rx with anterior colporrhaphy Primary osteoarthritis of right knee Rectocele 10/23/2019 stage I. Noted at time of postop exam following anterior colporrhaphy Sigmoid diverticulosis Vitiligo Surgical History Colonoscopy planned (~08/12/18) Dr Guerra: diverticulosis, internal hemorrhoids Cystocele, midline used #4 ring with support pessary. 09/10/19. anterior colporrhaphy Debridement, Soft Tissue 08/14/15; DR. BERKOWITZ; LEFT DORSAL HAND ABSCESS History of esophagogastroduodenoscopy (EGD) (05/18/11) Dr Elmer Koroma History of vein stripping Hx of fracture of femur (01/24/18) post open reduction and internal fixation of L femoral neck fracture treated with cannulated screws Hx of vaginal surgery 09/10/2019 anterior colporrhaphy. Uterus remains. Status post cholecystectomy Status post incision and drainage (08/14/15) STRESS TEST (01/23/14) VEIN STRIPPING 05/13/03 X 2; 02/15/11 Family History Father Alcohol abuse Alzheimer disease Social History Smoking/Tobacco Use Status: Never Second Hand Exposure: Yes Smoking risk assessment performed?: Yes Alcohol Intake: never Drug use: Never Substance use type: does not use Household members: none Housing: house Number of Children: 3 Communication Needs: None Education Level: high school Do you need help understanding health information?: Rarely Pets and animals: Yes Pets and animals: cat(s) Sexually active: No Current gender identity: female What is your relationship status?: How often do you talk on the phone with friends or family?: three or more times per week How often do you get together with friends or relatives?: three or more times per week How often do you attend congregation or sabianism services?: 4 or more times per year Do you belong to any clubs or organized social groups?: no Panel score (0-1 are the most socially isolated patients): 2 What type of physical activity do you participate in: walking Duration: 60-90 minutes/day Frequency: 1-2 times per week Veronika/Nondenominational: Confucianism Special veronika needs: No Seatbelt use: always Drive intox or ride w/intox lumber driver: No Do you feel safe at home: Yes Do you feel safe in your relationship?: Yes History History 3 Para Hx # Term Pregnancies 3 Multiple births Hx # Pregnancies Ectopic pregnancies AB induced Hx Number of Living Children AB spontaneous Exam Const General: cooperative, comfortable and no acute distress Resp Effort & Inspection: normal respiratory effort Auscultation: clear to auscultation bilaterally Cardio Rate: regular rate Rhythm: regular rhythm GI Inspection: normal to inspection Auscultation: normal bowel sounds Other: Nontender abdominal exam Other: Large stool noted in rectal vault Skin General skin exam: no rashes or lesions noted Neuro General: patient alert and patient oriented x3 Course Vital Signs Vital signs: Vital Signs Temperature 36.7 C 06/30/22 17:50 Pulse 79 06/30/22 17:50 Respiratory Rate 18 06/30/22 17:50 Blood Pressure 125/73 06/30/22 17:50 Pulse Oximetry 95 06/30/22 17:50 Temperature 36.4 C L 06/30/22 22:01 Temperature Source Oral 06/30/22 22:01 Pulse 107 H 06/30/22 22:01 Respiratory Rate 17 06/30/22 22:01 Respiratory Effort Non-Labored 06/30/22 18:20 Blood Pressure 125/74 06/30/22 22:01 Blood Pressure Position Sitting 06/30/22 17:50 Pulse Oximetry 97 06/30/22 22:01 Oxygen Delivery Method Room Air 06/30/22 22:01 Oxygen Flow Rate 0 06/30/22 22:01 Pain Level 0 06/30/22 22:01
== END 2022-06-30 22:03 | disposition home or self-care (01) ==
PROVIDERS: Emergency Provider Physician Assistant; PCP Nurse Practitioner
DX: R10.9 Unspecified abdominal pain (principal); J45.909 Unspecified asthma, uncomplicated
CPT/HCPCS: 99283; 74019; 99281

== ENCOUNTER → 2022-07-04 16:26 | Outpatient (CLI) | payer MEDICAID, SELFPAY ==
--- NOTE | 2022-07-04 | DI.RAD_ITS ---
Exam(s) XR ELBOW LT COMPLETE EXAM: XR ELBOW LT COMPLETE CLINICAL HISTORY: LEFT ARM PAIN--M79.602. TECHNIQUE: 2D digital imaging was performed. COMPARISON: No exams were available for comparison FINDINGS: 3 views No evidence of fracture or elbow joint effusion. No swelling of the olecranon bursa. Radial head an d neck unremarkable. Small bony excrescence seen off of the lateral humeral condyle. Probable epico ndylitis. IMPRESSION: No acute fracture. Probable lateral epicondylitis. DATA REPOSITORY: RADIATION DOSE DELIVERED:
--- NOTE | 2022-07-04 | DI.RAD_ITS ---
Exam(s) XR HUMERUS LT EXAM: XR HUMERUS LT CLINICAL HISTORY: LEFT ARM PAIN--M79.602. TECHNIQUE: 2D digital imaging was performed. COMPARISON: No exams were available for comparison FINDINGS: Two views: No evidence of fracture or dislocation. No abnormal soft tissue calcifications. Bone density normal . IMPRESSION: No humerus fracture evident on this two view study. DATA REPOSITORY: RADIATION DOSE DELIVERED:
== END ==
PROVIDERS: PCP Nurse Practitioner; Visit Provider Nurse Practitioner Family
DX: M79.602 Pain in left arm (principal); M25.422 Effusion, left elbow
CPT/HCPCS: 73060; 73080

== ENCOUNTER 2022-07-21 14:24 | Outpatient (REF) | payer MEDICAID, SELFPAY ==
[2022-07-21 15:56] LABS: WBC >50 HPF (0-5)
[2022-07-21 15:57] LABS: Bacteria Packed HPF (Negative); C & S Indicated? C&S Done As Ordered
== END 2022-07-21 14:25 | disposition home or self-care (01) ==
LOC: LBN 14:24
PROVIDERS: PCP Nurse Practitioner; Visit Provider Physician Assistant Medical
DX: N39.0 Urinary tract infection, site not specified (principal)
CPT/HCPCS: 87077; 81015; 87086; 87186

== ENCOUNTER 2022-07-28 16:32 | Outpatient (REF) | payer MEDICAID, SELFPAY ==
[2022-07-28 20:50] LABS: Bacteria Few HPF (Negative); C & S Indicated? C&S Done As Ordered; Casts Negative LPF (Negative); Crystals Negative HPF (Negative); Epithelial Cells Few HPF (Negative); Mucus Heavy (Negative); RBC 0-2 HPF (0-2)
== END 2022-07-28 16:33 | disposition home or self-care (01) ==
LOC: LBN 16:32
PROVIDERS: PCP Nurse Practitioner; Visit Provider Physician Assistant Medical
DX: N39.0 Urinary tract infection, site not specified (principal)
CPT/HCPCS: 81015; 87086

== ENCOUNTER 2022-11-29 15:15 | Outpatient (REF) | payer MEDICAID, SELFPAY | END 2022-11-29 15:16 | disposition home or self-care (01) | LOC: LBN 15:15 | PROVIDERS: PCP Nurse Practitioner Family; Visit Provider Physical Medicine & Rehabilitation | DX: N39.0 Urinary tract infection, site not specified (principal) | CPT/HCPCS: 87077; 87086; 87186 ==

== ENCOUNTER 2023-02-02 21:04 | Outpatient (REF) | payer MEDICAID, SELFPAY | END 2023-02-02 21:05 | disposition home or self-care (01) | LOC: LBN 21:04 | PROVIDERS: PCP Nurse Practitioner Family; Visit Provider Physician Assistant | DX: N39.0 Urinary tract infection, site not specified (principal) | CPT/HCPCS: 87086; 87186 ==

== ENCOUNTER 2023-02-10 16:24 | Outpatient (REF) | payer MEDICAID, SELFPAY | END 2023-02-10 16:25 | disposition home or self-care (01) | LOC: LBN 16:24 | PROVIDERS: PCP Nurse Practitioner Family; Visit Provider Nurse Practitioner Family | DX: N39.0 Urinary tract infection, site not specified (principal) | CPT/HCPCS: 87077; 87086; 87186 ==

== ENCOUNTER 2023-05-08 01:44 | Outpatient (CLI) | payer MEDICAID, SELFPAY ==
--- NOTE | 2023-05-08 07:30 | DI.DEXA_ITS ---
Exam(s) XR DEXA BONE DENSITY W/WO BELKIS EXAM: XR DEXA BONE DENSITY W/WO BELKIS CLINICAL HISTORY: screening for osteoporosis in postmenopausal woman,z78.0 TECHNIQUE: COMPARISON: DX DEXA BONE DENSITY WITH BELKIS from 02/26/2018 FINDINGS: Lateral Spine Image: Unremarkable. No compression deformities identified. Right hip: Total T-Score: -2.0. This compares to 0.1 on the prior examination. Total Z-Score: -0.8 T- and Z-scores: Findings are consistent with osteopenia. Lumbar Spine: Total T-Score: -1.2. This compares to -1.3 on the prior examination. Total Z-Score: 0.6 T- and Z-scores: Findings are consistent with osteopenia. IMPRESSION: No evidence of osteoporosis.
--- NOTE | 2023-05-08 07:30 | DI.MAMMO_ITS ---
Exam(s) MAMMO SCREENING EXAM: MAMMO SCREENING CLINICAL HISTORY: screening,z12.39 TECHNIQUE: Bilateral full field digital CC and MLO mammographic images were obtained with 3D tomosyn thesis and utilizing computer aided detection (CAD). COMPARISON: Available for comparison. FINDINGS: Masses/Architectural Distortion: There is a 4 mm nodule in the upper outer quadrant of the right nat st. There are no areas of architectural distortion. Microcalcifications: No suspicious pleomorphic-type are seen. Skin Thickening/Nipple Retraction: None. IMPRESSION: 1. 4 mm nodule in the upper outer quadrant of the right breast. 2. This area should be further evaluated with a spot compression view. Limited right breast ultrasou nd should also be obtained at that time. BI-RADS Category 0 - Assessment Incomplete: Need additional imaging evaluation Breast Density - Category B - Scattered areas of fibroglandular density Breast density category C or D implies that the patient has dense breast tissue. Dense breast tissue is very common and is not abnormal but dense breast tissue can make it harder to find cancer on a ma mmogram. Also, dense breast tissue may increase their breast cancer risk. This information about the result of the mammogram report was provided to the patient to raise their awareness. Use this report when you speak with the patient about their risks for breast cancer, which includes their family hist ory. At that time, you may recommend for more screening tests (Ultrasound or MRI) as they might be us eful based on their risk. A negative radiographic report should not delay biopsy if a dominant or clinically suspicious mass is present. Up to ten percent of cancers are not identified on mammography. A negative report may reinforce clinical impression. Adenosis and dense breasts may obscure an underlying neoplasm. False positive reports average 6 to 10%. Patient will receive a letter notifying them of these results.
== END 2023-05-08 02:04 ==
LOC: DI 01:44
PROVIDERS: PCP Nurse Practitioner Family; Visit Provider Nurse Practitioner Family
DX: Z12.31 Encounter for screening mammogram for malignant neoplasm of breast (principal); Z78.0 Asymptomatic menopausal state; Z13.820 Encounter for screening for osteoporosis
CPT/HCPCS: 77063; 77067; 77080

== ENCOUNTER 2023-05-08 03:57 | Outpatient (CLI) | payer MEDICAID, SELFPAY ==
[2023-05-08 10:27] LABS: HCT 39.8 % (36.0-46.0); HGB 13.3 g/dL (11.2-15.7); MCH 30.3 pg (27.0-33.0); MCHC 33.4 % (32.0-36.0); MCV 91 fL (80-95); MPV 9.5 fL (8.0-11.0); Platelet Count 224 10^3/uL (130-400); RBC 4.39 10^6/uL (3.93-5.22); RDW 12.8 % (11.7-14.6); RDW-SD 42.2 fL; WBC 6.55 10^3/uL (4.4-10.8)
[2023-05-08 10:41] LABS: Hemoglobin A1C 5.3 % (<5.7)
[2023-05-08 11:27] LABS: Anion Gap 8.3 mmol/L (3-11); BUN 12 mg/dL (7-18); CO2 28.7 mmol/L (21.0-32.0); CREATININE 0.8 mg/dL (0.55-1.02); Calcium 9.4 mg/dL (8.5-10.1); Calculated LDL 81 mg/dL (<100); Chloride 106 mmol/L (98-107); Cholesterol 134 mg/dL (<200); Estimated GFR 81.72 (mL/min/1.73m2); Glucose 96 mg/dL (74-106); HDL Cholesterol 47 mg/dL (40-60); Potassium 4.2 mmol/L (3.5-5.1); Sodium 143 mmol/L (136-145); TSH (W/Ref FT4) 1.38 uIU/mL (0.36-3.74); Triglyceride 31 mg/dL (<150)
[2023-05-09 13:53] LABS: Lab Add On Test DONE
[2023-05-09 14:33] LABS: Vitamin B12 136 pg/mL (193-986)
== END 2023-05-08 03:58 | disposition home or self-care (01) ==
LOC: LBO 03:57
PROVIDERS: Psychiatry & Neurology Neurology; PCP Nurse Practitioner Family; Visit Provider Nurse Practitioner Family
DX: E03.9 Hypothyroidism, unspecified (principal); F41.9 Anxiety disorder, unspecified; G20 Parkinson's disease; G47.33 Obstructive sleep apnea (adult) (pediatric); J45.909 Unspecified asthma, uncomplicated; K21.9 Gastro-esophageal reflux disease without esophagitis; R73.03 Prediabetes; Z00.00 Encounter for general adult medical examination without abnormal findings; F81.9 Developmental disorder of scholastic skills, unspecified
CPT/HCPCS: 36415; 80048; 80061; 85027; 82607; 83036; 84443

== ENCOUNTER → 2023-05-14 02:07 | Outpatient (CLI) | payer MEDICAID, SELFPAY ==
--- NOTE | 2023-05-14 09:49 | DI.MAMMO_ITS ---
Exam(s) MAMMO SCREEN CALL BACK UNI EXAM: MAMMO SCREEN CALL BACK UNI CLINICAL HISTORY: 4 MM NODULE IN UPPER OUTER QUADRANT, RT BREAST. TECHNIQUE: Unilateral spot mammographic images obtained with 3D tomosynthesisand utilizing computer aided detection (CAD). . COMPARISON: Prior mammograms were reviewed. This additional imaging was performed due to findings described on the recent screening mammogram of 05/08/2023. FINDINGS: DIAGNOSTIC MAMMOGRAM: Additional 3D spot mammographic views performed todayreveal that this small nodule has the appearance of a benign intramammary lymph node. Ultrasound was therefore not performed IMPRESSION: 1. Benign finding. No radiographic evidence of malignancy in the right breast. Appropriate follow-up is to keep this patient on her yearly mammogram schedule, with earlier imaging if a self detected breast change is noted.. The patient was informed of these findings and recommendations myself prior to leaving the department today. BI-RADS Category 2 - Benign Findings Breast Density - Category B - Scattered areas of fibroglandular density Breast density Category C or D implies that the patient has dense breast tissue. Dense breast tissue can make it harder to find cancer on a mammogram. Dense breast tissue is also associated with an incr eased risk of breast cancer. This information about the result of the mammogram report was provided to the patient to raise their awareness. Use this report when you speak with the patient about their risks for breast cancer, which includes their family history. At that time, you may recommend additional screening tests (Ultrasoun d or MRI) as these tests may add significant information. A negative radiographic report should not delay biopsy if a dominant or clinically suspicious mass is present. Up to ten percent of cancers are not identified on mammography. A negative report may reinforce clinical impression. Adenosis and dense breasts may obscure an underlying neoplasm. False positive reports average 6 to 10%. Patient will receive a letter notifying them of these results.
== END ==
PROVIDERS: PCP Nurse Practitioner Family; Visit Provider Nurse Practitioner Family
DX: Z12.31 Encounter for screening mammogram for malignant neoplasm of breast (principal); N63.11 Unspecified lump in the right breast, upper outer quadrant
CPT/HCPCS: 77063; 77067

== ENCOUNTER → 2023-05-14 02:08 | Outpatient (CLI) | payer MEDICAID, SELFPAY ==
--- NOTE | 2023-05-14 10:21 | DI.RAD_ITS ---
Exam(s) XR FOOT RT COMPLETE EXAM: XR FOOT RT COMPLETE CLINICAL HISTORY: hammer toes R foot, pre-op evaluation,M20.41. TECHNIQUE: 2D digital imaging was performed. Three views. COMPARISON: No exams were available for comparison FINDINGS: BONES: No acute fracture is present. No bony destructive lesion is seen. Plantar calcaneal spur. JOINTS: No dislocation present. No significant degenerative changes. No hammertoe deformities visib le. Plantar arch maintained. SOFT TISSUE: Normal. IMPRESSION: Heel spur. DATA REPOSITORY: RADIATION DOSE DELIVERED:
--- NOTE | 2023-05-14 10:21 | DI.RAD_ITS ---
Exam(s) XR FOOT LT COMPLETE EXAM: XR FOOT LT COMPLETE CLINICAL HISTORY: hammer toes L foot, pre-op evaluation,M20.42. TECHNIQUE: 2D digital imaging was performed. Three views. COMPARISON: CR XR FOOT RT COMPLETE from 05/14/2023 FINDINGS: BONES: No acute fracture is present. No bony destructive lesion is seen. Heel spurs. JOINTS: No dislocation present. Hammertoe deformities 2nd through 5th toes. Plantar arch maintaine d. SOFT TISSUE: Normal. IMPRESSION: Hammertoe deformities. Heel spurs. DATA REPOSITORY: RADIATION DOSE DELIVERED:
== END ==
PROVIDERS: PCP Nurse Practitioner Family; Visit Provider Podiatrist
DX: M20.41 Other hammer toe(s) (acquired), right foot (principal); M20.42 Other hammer toe(s) (acquired), left foot; M77.32 Calcaneal spur, left foot
CPT/HCPCS: 73630

== ENCOUNTER 2023-06-28 16:43 | Outpatient (REF) | payer MEDICAID, SELFPAY ==
[2023-06-28 15:48] LABS: Bilirubin Negative (Negative); Blood Trace-intact (Negative); Clarity Clear (Clear); Glucose Negative (Negative); Ketones Negative (Negative); Leukocyte Esterase Small (Negative); Nitrite Positive (Negative); Specific Gravity >= 1.030 (1.005-1.025); Urobilinogen 0.2 mg/dL (Up to 0.2); pH 5.5 (5-8)
[2023-06-28 16:32] LABS: Bacteria Many HPF (Negative); Epithelial Cells Many HPF (Negative); Other Cells Rare Renal (Negative); WBC >50 HPF (0-5)
[2023-06-28 16:33] LABS: C & S Indicated? No/Sq. Contamination; Crystals Negative HPF (Negative); Mucus Trace (Negative)
== END 2023-06-28 16:44 | disposition home or self-care (01) ==
LOC: LBN 16:43
PROVIDERS: PCP Nurse Practitioner Family; Visit Provider Nurse Practitioner Family
DX: N39.0 Urinary tract infection, site not specified (principal); R30.0 Dysuria
CPT/HCPCS: 81003; 81015

== ENCOUNTER → 2023-10-11 14:31 | Outpatient (CLI) | payer MEDICAID, SELFPAY ==
--- NOTE | 2023-10-11 12:30 | DI.RAD_ITS ---
Exam(s) XR FOOT RT COMPLETE EXAM: XR FOOT RT COMPLETE CLINICAL HISTORY: evaluate pathology,rt foot pain, m79.671. TECHNIQUE: 2D digital imaging was performed. COMPARISON: CR XR FOOT LT COMPLETE from 05/14/2023 FINDINGS: 3 views No evidence acute fracture nor diastasis of the Lisfranc joint. Bone density normal. No osseous les ions nor erosions. Small inferior calcaneal spur noted. IMPRESSION: No acute osseous findings in the foot. DATA REPOSITORY: RADIATION DOSE DELIVERED:
== END ==
PROVIDERS: PCP Nurse Practitioner Family; Visit Provider Nurse Practitioner Family
DX: M79.671 Pain in right foot (principal)
CPT/HCPCS: 73630

== ENCOUNTER → 2024-05-08 00:57 | Outpatient (CLI) | payer MEDICAID, SELFPAY ==
--- NOTE | 2024-05-08 09:15 | DI.MAMMO_ITS ---
Exam(s) MAMMO SCREENING EXAM: MAMMO SCREENING CLINICAL HISTORY: screening, Z12.39. TECHNIQUE: Bilateral full field digital CC and MLO mammographic images were obtained with 3D tomosyn thesis and utilizing computer aided detection (CAD). COMPARISON: Prior mammograms were reviewed. FINDINGS: There has been no significant change in the appearance and distribution of the fibroglandular tissue. Previously described small benign-appearing nodule in the right breast is unchanged and has appearanc e of a benign intramammary lymph node. There are no new spiculated masses nor malignant appearing microcalcification groups. There is no significant architectural distortion nor skin thickening-retraction. IMPRESSION: No radiographic evidence of malignancy. Stable benign-appearing findings. BI-RADS Category 2 - Benign Findings Breast Density - Category B - Scattered areas of fibroglandular density Breast density Category C or D implies that the patient has dense breast tissue. Dense breast tissue can make it harder to find cancer on a mammogram. Dense breast tissue is also associated with an incr eased risk of breast cancer. This information about the result of the mammogram report was provided to the patient to raise their awareness. Use this report when you speak with the patient about their risks for breast cancer, which includes their family history. At that time, you may recommend additional screening tests (Ultrasoun d or MRI) as these tests may add significant information. A negative radiographic report should not delay biopsy if a dominant or clinically suspicious mass is present. Up to ten percent of cancers are not identified on mammography. A negative report may reinforce clinical impression. Adenosis and dense breasts may obscure an underlying neoplasm. False positive reports average 6 to 10%. Patient will receive a letter notifying them of these results.
== END ==
PROVIDERS: PCP Nurse Practitioner Family; Visit Provider Nurse Practitioner Family
DX: Z12.39 Encounter for other screening for malignant neoplasm of breast (principal)
CPT/HCPCS: 77063; 77067

== ENCOUNTER 2024-05-08 01:41 | Outpatient (CLI) | payer MEDICAID, SELFPAY ==
[2024-05-08 10:56] LABS: HCT 39.2 % (36.0-46.0); HGB 13.2 g/dL (11.2-15.7); MCH 31.7 pg (27.0-33.0); MCHC 33.7 % (32.0-36.0); MCV 94 fL (80-95); MPV 9.3 fL (8.0-11.0); Platelet Count 215 10^3/uL (130-400); RBC 4.17 10^6/uL (3.93-5.22); RDW 12.7 % (11.7-14.6); RDW-SD 43.8 fL; WBC 6.42 10^3/uL (4.4-10.8)
[2024-05-08 12:24] LABS: Anion Gap 9.6 mmol/L (3-11); BUN 15 mg/dL (7-18); CO2 26.4 mmol/L (21.0-32.0); CREATININE 0.7 mg/dL (0.55-1.02); Calcium 9.2 mg/dL (8.5-10.1); Calculated LDL 78 mg/dL (<100); Chloride 106 mmol/L (98-107); Cholesterol 137 mg/dL (<200); Estimated GFR 95.32 (mL/min/1.73m2); Glucose 107 mg/dL (74-106); HDL Cholesterol 46 mg/dL (40-60); Potassium 4.3 mmol/L (3.5-5.1); Sodium 142 mmol/L (136-145); TSH (W/Ref FT4) 1.47 uIU/mL (0.36-3.74); Triglyceride 65 mg/dL (<150); Vitamin B12 1068 pg/mL (193-986); Vitamin D 25 Total 47.6 ng/mL (30-100)
== END 2024-05-08 01:42 | disposition home or self-care (01) ==
LOC: LBO 01:41
PROVIDERS: PCP Nurse Practitioner Family; Visit Provider Nurse Practitioner Family
DX: G31.84 Mild cognitive impairment of uncertain or unknown etiology (principal); K21.9 Gastro-esophageal reflux disease without esophagitis; F41.9 Anxiety disorder, unspecified; R73.03 Prediabetes; E03.9 Hypothyroidism, unspecified; M85.89 Other specified disorders of bone density and structure, multiple sites; E55.9 Vitamin D deficiency, unspecified; E53.8 Deficiency of other specified B group vitamins
CPT/HCPCS: 36415; 80048; 80061; 82306; 85027; 82607; 84443

== ENCOUNTER 2024-05-23 17:07 | Outpatient (REF) | payer MEDICAID, SELFPAY ==
[2024-05-23 21:17] LABS: Bilirubin Negative (Negative); Blood Moderate (Negative); Clarity Sl Cloudy (Clear); Glucose Negative (Negative); Ketones Trace mg/dL (Negative); Leukocyte Esterase Small (Negative); Nitrite Positive (Negative); Specific Gravity >= 1.030 (1.005-1.025); Urobilinogen 0.2 mg/dL (Up to 0.2)
[2024-05-23 21:27] LABS: WBC >50 HPF (0-5)
[2024-05-23 21:28] LABS: Bacteria Moderate HPF (Negative); C & S Indicated? C&S Done As Ordered; Casts Negative LPF (Negative); Crystals Negative HPF (Negative); Epithelial Cells Rare HPF (Negative); Mucus Negative (Negative)
== END 2024-05-23 17:08 | disposition home or self-care (01) ==
LOC: LBN 17:07
PROVIDERS: PCP Nurse Practitioner Family; Visit Provider Family Medicine
DX: N30.00 Acute cystitis without hematuria (principal); N39.0 Urinary tract infection, site not specified
CPT/HCPCS: 87077; 81003; 81015; 87086; 87186

== ENCOUNTER 2024-06-16 17:37 | Outpatient (REF) | payer MEDICAID, SELFPAY ==
[2024-06-16 21:05] LABS: Bilirubin Negative (Negative); Blood Negative (Negative); Clarity Sl Cloudy (Clear); Glucose Negative (Negative); Ketones Trace mg/dL (Negative); Leukocyte Esterase Moderate (Negative); Nitrite Positive (Negative); Specific Gravity 1.025 (1.005-1.025); Urobilinogen 0.2 mg/dL (Up to 0.2)
[2024-06-16 21:16] LABS: Bacteria Many HPF (Negative); C & S Indicated? Yes; Casts Negative LPF (Negative); Crystals Negative HPF (Negative); Epithelial Cells Few HPF (Negative); Mucus Trace (Negative); RBC 0-2 HPF (0-2); WBC >50 HPF (0-5)
== END 2024-06-16 17:38 | disposition home or self-care (01) ==
LOC: LBN 17:37
PROVIDERS: PCP Nurse Practitioner Family; Visit Provider Nurse Practitioner Family
DX: R39.9 Unspecified symptoms and signs involving the genitourinary system (principal); N30.00 Acute cystitis without hematuria
CPT/HCPCS: 87077; 81003; 81015; 87086; 87186

== ENCOUNTER 2024-09-26 09:24 | Emergency (ER) | payer MEDICAID, SELFPAY ==
[2024-09-26 09:29] VITALS: BP 112/94; PULSE 80; RESP 15; TEMP 36.5; O2SAT 98
[2024-09-26 09:32] VITALS: BP 112/94; PULSE 80; RESP 15; TEMP 36.5; O2SAT 98
--- NOTE | 2024-09-26 09:45 | DI.CT_ITS ---
Exam(s) CT ABDOMEN PELVIS W EXAM: CT ABDOMEN PELVIS W CLINICAL HISTORY: rlq tenderness. TECHNIQUE: Imaging Protocol: Axial computed tomography images with coronal and sagittal reformatted images were created and reviewed CONTRAST MATERIAL: Intravenous: Omnipaque 350 Contrast volume:75 ml Oral: no COMPARISON: No exams were available for comparison FINDINGS: ABDOMEN and PELVIS: Lung Bases: No acute findings. Liver: Normal density. No suspicious mass. Gallbladder and biliary tract: Cholecystectomy. No biliary dilation. Pancreas: Normal density. No abnormal calcifications or inflammatory process. No evidence of mass. Spleen: Normal. Kidneys: Normal size, contour and axis. No radiodense stones. No obstructive uropathy. No suspicious masses seen. Adrenal glands: No masses seen. Vasculature: Abdominal aorta non-dilated. Soft tissues: Unremarkable. Bladder: No gross wall thickening. No calculi.No focal mass. Bowel: No obstruction. No bowel wall thickening. Appendix normal. Large quantity of stool througho ut the colon. Fecalization of distal small bowel. Mild sigmoid diverticulosis. No evidence of dive rticulitis. Peritoneal cavity: No ascites. No focal collection. No mesenteric inflammatory response. No free air . Bones: Screws in proximal left femur. Degenerative changes of the hips. Mild degenerative changes o f the spine. Reproductive organs: Unremarkable. Lymph nodes: No pathologically enlarged lymph nodes. IMPRESSION:: Large quantity of stool throughout the colon, consistent with constipation. RADIATION DOSE DELIVERED: 496.88mGy.cm Total DLP DATA REPOSITORY: All CT scans at this facility are submitted to the National Radiology Data Registry (NRDR) Dose Index Registry (DIR) with the [employer] ([employer]). RADIATION OPTIMIZATION: All CT scans at this facility use at least one of these dose optimization te chniques: automated exposure control; mA and/or kV adjustment per patient size (includes targeted exa ms where dose is matched to clinical indication); or iterative reconstruction.
--- NOTE | 2024-09-26 09:50 | W.ED.GENAD ---
Discharge Plan Disposition Patient Disposition: Home Condition: Stable Discharge Details Clinical Impression: Constipation Primary Care Provider: Joaquina Garcia ED Provider: Vamsi Ruiz Home Meds and New Rx's Prescriptions: Continued cyanocobalamin (vitamin B-12) 1,000 mcg capsule 1,000 mcg PO DAILY calcium carbonate 600 mg calcium (1,500 mg) tablet 600 mg PO DAILY entacapone 200 mg tablet See Rx Instructions .ROUTE .COMPLEX Qty: 360 3RF Dose Instruction: TAKE ONE TABLET BY MOUTH THREE TIMES A DAY WITH LEVODOPA/CARBIDOPA DOSE Rx Instructions: TAKE ONE TABLET BY MOUTH THREE-four TIMES A DAY WITH LEVODOPA/CARBIDOPA DOSE ketoconazole 2 % cream 1 applic topical DAILY Qty: 120 6RF Rx Instructions: Apply to toenails once daily carbidopa-levodopa 25-100 mg tablet extended release 1 tab PO QHS Qty: 90 3RF carbidopa-levodopa [Sinemet] 25-100 mg tablet 2 tab PO TID omega-3 fatty acids-fish oil 1 EACH capsule 1 ea PO DAILY cinnamon bark 500 MG capsule 500 mg PO BID polyethylene glycol 3350 [Miralax] 17 gram/dose powder 17 g PO DAILY Qty: 850 12RF loratadine [Claritin] 10 mg tablet 10 mg PO DAILY Qty: 90 4RF Rx Instructions: For seasonal changes cholecalciferol (vitamin D3) 50 mcg (2,000 unit) capsule 2,000 unit PO DAILY Qty: 90 3RF montelukast [Singulair] 10 mg tablet 10 mg PO DAILY Qty: 90 4RF fluoxetine 10 mg capsule 10 mg PO DAILY Qty: 90 3RF fluticasone propion-salmeterol [Advair HFA] 115-21 mcg/actuation HFA aerosol inhaler 2 puff inhalation Q12H Qty: 12 3RF Rx Instructions: administer with spacer amantadine HCl 100 mg capsule 100 mg PO BID Qty: 180 3RF levothyroxine 125 mcg tablet 125 mcg PO DAILY Qty: 90 3RF Discharge Instructions Instructions: Polyethylene Glycol 3350, Docusate, How to Use an Enema, Constipation, Adult ED Additional Instructions: You were seen in the emergency department for your mother's abdominal pain, her laboratory workup is completely benign with no signs of infection or organ problem, her CT shows only a large amount of stool throughout her colon indicating constipation. She likely needs to take oral rqjn-wuj-wwdlnvo stool softeners like docusate, obtain an clcj-xsx-byarhic enema and try to perform this to help soften the stool in the rectum and take an lkvl-xcy-vbdifnz laxative like MiraLAX to help with bowel movements, use these treatments consistently and as recommended for the next couple days until you get some good bowel movement. Please return for any emergent concerns, complete lack of passing gas or severe increase in abdominal pain especially with fever. Referrals: Joaquina Garcia NP [Primary Care Provider] - Discharge Data Discharge Date/Time-TO BE ENTERED AT DEPARTURE: 09/26/24 11:36 HPI General Date/Time Provider Initiated Documentation: 09/26/24 09:37. HPI Narrative: 64 year-old female presents to ED today by POV/ambulating with her son with a chief complaint of abdominal pain, PCP concerned for hernia, has outpatient U/S for later this week with onset over the past days to week. Quality described as R sided abdominal weakness, no radiation to fever, chest pain, intractable nausea, vomiting, diarrhea, endorses normal BMs, normal urination habits, denies URI symptoms. Severity is described as mild to moderate. Palliating factors include nothing specific attempted. Provoking factors include nothing specific. Events leading up to the incident/Associated Symptoms: Patient has Parkinson's. Patient not anticoagulated. Related Data Home Medications ?Medication ?Instructions ?Recorded ?Confirmed omega-3 fatty acids-fish oil 300 1 ea PO DAILY 12/22/13 09/26/24 mg-1,000 mg capsule cinnamon bark 500 mg capsule 500 mg PO BID 05/17/16 09/26/24 calcium carbonate 600 mg PO DAILY 10/14/19 09/26/24 polyethylene glycol 3350 17 17 g PO DAILY constipation #850 05/19/22 09/26/24 gram/dose oral powder (Miralax) grams loratadine 10 mg tablet (Claritin) 10 mg PO DAILY #90 tab-caps 11/01/22 09/26/24 cholecalciferol (vitamin D3) 50 2,000 unit PO DAILY #90 caps 03/14/23 09/26/24 mcg (2,000 unit) capsule cyanocobalamin (vitamin B-12) 1,000 mcg PO DAILY 06/11/23 09/26/24 1,000 mcg capsule entacapone 200 mg tablet See Rx Instructions .Route 01/09/24 09/26/24 .COMPLEX #360 tabs ketoconazole 2 % topical cream 1 applic topical DAILY #120 grams 02/04/24 09/26/24 montelukast 10 mg tablet 10 mg PO DAILY #90 tab-caps 02/26/24 09/26/24 (Singulair) carbidopa 25 mg-levodopa 100 mg 2 tab PO TID 03/25/24 09/26/24 tablet (Sinemet) carbidopa ER 25 mg-levodopa 100 mg 1 tab PO QHS #90 tabs 04/08/24 09/26/24 tablet,extended release fluoxetine 10 mg capsule 10 mg PO DAILY #90 caps 06/23/24 09/26/24 fluticasone propionate 115 2 puff inhalation Q12H #12 grams 07/10/24 09/26/24 mcg-salmeterol 21 mcg/actuation HFA inhaler (Advair HFA) amantadine HCl 100 mg capsule 100 mg PO BID #180 caps 07/18/24 09/26/24 levothyroxine 125 mcg tablet 125 mcg PO DAILY #90 tabs 08/04/24 09/26/24 Previous Rx's ?Medication ?Instructions ?Recorded polyethylene glycol 3350 17 17 g PO DAILY constipation #850 05/19/22 gram/dose oral powder (Miralax) grams loratadine 10 mg tablet (Claritin) 10 mg PO DAILY #90 tab-caps 11/01/22 cholecalciferol (vitamin D3) 50 2,000 unit PO DAILY #90 caps 03/14/23 mcg (2,000 unit) capsule entacapone 200 mg tablet See Rx Instructions .Route 01/09/24 .COMPLEX #360 tabs ketoconazole 2 % topical cream 1 applic topical DAILY #120 grams 02/04/24 montelukast 10 mg tablet 10 mg PO DAILY #90 tab-caps 02/26/24 (Singulair) carbidopa ER 25 mg-levodopa 100 mg 1 tab PO QHS #90 tabs 04/08/24 tablet,extended release fluoxetine 10 mg capsule 10 mg PO DAILY #90 caps 06/23/24 fluticasone propionate 115 2 puff inhalation Q12H #12 grams 07/10/24 mcg-salmeterol 21 mcg/actuation HFA inhaler (Advair HFA) amantadine HCl 100 mg capsule 100 mg PO BID #180 caps 07/18/24 levothyroxine 125 mcg tablet 125 mcg PO DAILY #90 tabs 08/04/24 Allergies Allergy/AdvReac Type Severity Reaction Status Date / Time acetaminophen (From [facility]) Allergy Intermediate Swelling/Ed Verified 09/26/24 09:33 rosalia General Stated Complaint: Abd Prob ALEKS: 3 Review of Systems All systems reviewed & are unremarkable except as noted in HPI and below Exam Narrative Exam Narrative: GENERAL APPEARANCE: Well-nourished, non-toxic, awake and alert, atraumatic, no acute distress. SKIN: Warm, pink, dry, intact, without rashes/lesions/ulcerations. HEAD: Normocephalic, atraumatic, normal hair distribution for gender/age. EYES: Normal conjunctiva, no exudates on lids/lashes. ENT: Nares patent, no circumoral cyanosis, no facial swelling NECK: Supple, trachea midline, painless cervical ROM. LUNGS/CHEST: Lungs CTA bilaterally- no rhonchi/rales/wheezes diffusely, non-labored respirations, normal A/P diameter, symmetrical expansion, no chest wall deformity HEART (CV/PV): Regular rate and rhythm without murmur, no peripheral edema, no JVD. ABDOMEN: Soft, non-distended, no guarding, diffuse mild tenderness without Nagel's sign, no rebound tenderness, no palpable masses, no McBurney's point tenderness. MSK: Normal ROM, no swelling/deformity to bilateral UEs or LEs, moving all extremities without weakness, no cyanosis, spine midline without tenderness, normal curvature. NEURO: Mental Status AAOx4 - alert to person, place, time, events No facial droop, no forehead involvement. Motor: No focal weakness - strength 5/5 in bilateral UEs and LEs, proximal and distal, symmetric. Sensory: sensation intact to light touch globally. Gait NT PSYCH: euthymic, cooperative, pleasant, appropriate speech Course Vital Signs Vital signs: Vital Signs Temperature 36.5 C 09/26/24 09:29 Pulse 80 09/26/24 09:29 Respiratory Rate 15 09/26/24 09:29 Blood Pressure 112/94 H 09/26/24 09:29 Pulse Oximetry 98 09/26/24 09:29 Temperature 36.5 C 09/26/24 09:32 Temperature Source Temporal Artery Scan 09/26/24 09:32 Pulse 80 09/26/24 09:32 Respiratory Rate 15 09/26/24 09:32 Blood Pressure 112/94 H 09/26/24 09:32 Blood Pressure Position Sitting 09/26/24 09:32 Pulse Oximetry 98 09/26/24 09:32 Oxygen Delivery Method Room Air 09/26/24 09:32 Oxygen Flow Rate 0 09/26/24 09:32 Pain Level 6 09/26/24 09:32 Medical Decision Making This dictation utilizes [id number]-[id number] dictation software and may contain unedited grammatical errors. 64 year-old female presents to ED today by POV/ambulating with her son with a chief complaint of abdominal pain, PCP concerned for hernia, has outpatient U/S for later this week with onset over the past days to week. Quality described as R sided abdominal weakness, no radiation to fever, chest pain, intractable nausea, vomiting, diarrhea, endorses normal BMs, normal urination habits, denies URI symptoms. Severity is described as mild to moderate. Palliating factors include nothing specific attempted. Provoking factors include nothing specific. Events leading up to the incident/Associated Symptoms: Patient has Parkinson's. Patients' medical history: History of diverticulitis, chronic constipation, GERD, Parkinson's on palliative care, prediabetes, osteopenia, obesity, asthma. Family and social history: Lives at home with son, eats healthy diet. Pertinent exam findings / vital signs include mild diffuse abdominal tenderness, nonperitoneal, benign cardiopulmonary status, neuro baseline per son. Differential / pathologies of concern include hernia, gastroenteritis, constipation, appendicitis, small bowel obstruction. Diagnostic studies of: -CBC, CMP, lipase, magnesium, COVID/flu/RSV PCR, lactate, CT ABD/pelvis with. -CBC completely benign -Lactate negative -CMP with no actionable abnormality -Magnesium normal -Lipase normal -COVID/flu/RSV PCR swab negative -CT shows large quantity of stool which is likely source for pain Interventions of: -Recommend outpatient stool softeners and MiraLAX and possible enema. ED Course/Assessment/Plan: Counseled this 64-year-old female that she likely has constipation as cause of her abdominal discomfort and that she needs to work on using consistent dose of stool softeners and MiraLAX and possible enemas to help pass large amounts of stool, I stressed at home with the son to continue normal diet and to attempt some laxative treatments. I suggest that they cancel their ultrasound as there is no evidence of hernia, strict return criteria for any complete constipation not passing gas, intractable nausea or vomiting, severe increased abdominal pain especially with fever. Findings not consistent with SBO, appendicitis, small bowel obstruction, gastroenteritis, hernia, incarceration. Disposition of constipation. Patient verbalized understanding of the plan and return to ED criteria and engaged in shared decision making. Medical Records Medical records reviewed: Yes I reviewed the patient's medical records. Imaging Data Radiologic Study: Attestation: I personally reviewed and interpreted this imaging study as follows: Imaging: CT Scan Radiologist's impression: EXAM: CT ABDOMEN PELVIS W CLINICAL HISTORY: rlq tenderness. TECHNIQUE: Imaging Protocol: Axial computed tomography images with coronal and sagittal reformatted images were created and reviewed CONTRAST MATERIAL: Intravenous: Omnipaque 350 Contrast volume:75 ml Oral: no COMPARISON: No exams were available for comparison FINDINGS: ABDOMEN and PELVIS: Lung Bases: No acute findings. Liver: Normal density. No suspicious mass. Gallbladder and biliary tract: Cholecystectomy. No biliary dilation. Pancreas: Normal density. No abnormal calcifications or inflammatory process. No evidence of mass. Spleen: Normal. Kidneys: Normal size, contour and axis. No radiodense stones. No obstructive uropathy. No suspicious masses seen. Adrenal glands: No masses seen. Vasculature: Abdominal aorta non-dilated. Soft tissues: Unremarkable. Bladder: No gross wall thickening. No calculi.No focal mass. Bowel: No obstruction. No bowel wall thickening. Appendix normal. Large quantity of stool throughout the colon. Fecalization of distal small bowel. Mild sigmoid diverticulosis. No evidence of diverticulitis. Peritoneal cavity: No ascites. No focal collection. No mesenteric inflammatory response. No free air. Bones: Screws in proximal left femur. Degenerative changes of the hips. Mild degenerative changes of the spine. Reproductive organs: Unremarkable. Lymph nodes: No pathologically enlarged lymph nodes. IMPRESSION:: Large quantity of stool throughout the colon, consistent with constipation. Lab Data Lab results reviewed: Yes I reviewed the patient's lab results. Labs: Laboratory Tests Range/Units 09/26/24 09/26/24 10:00 10:07 WBC (4.4-10.8) 10^3/uL 4.63 RBC (3.93-5.22) 10^6/uL 4.24 Hgb (11.2-15.7) g/dL 13.4 Hct (36.0-46.0) % 39.6 MCV (80-95) fL 93 MCH (27.0-33.0) pg 31.6 MCHC (32.0-36.0) % 33.8 RDW (11.7-14.6) % 12.9 Plt Count (130-400) 10^3/uL 194 MPV (8.0-11.0) fL 9.3 Immature Gran % % 0.2 Neutrophils % % 49.5 Lymphocytes % % 37.4 Monocytes % % 10.8 Eosinophils % % 1.5 Basophils % % 0.6 Nucleated RBC % (0.0-0.3) % 0.0 Absolute Neutrophils (1.2-6.7) 10^3/uL 2.29 Absolute Lymphocytes (1.2-3.4) 10^3/uL 1.73 Absolute Monocytes (0.1-0.8) 10^3/uL 0.50 Absolute Eosinophils (0.0-0.7) 10^3/uL 0.07 Absolute Basophils (0.0-0.2) 10^3/uL 0.03 VBG Lactate (0.6-1.4) mmol/L 0.7 Sodium (136-145) mmol/L 141 Potassium (3.5-5.1) mmol/L 3.9 Chloride (98-107) mmol/L 105 Carbon Dioxide (21.0-32.0) mmol/L 27.5 Anion Gap (3-11) mmol/L 8.5 BUN (7-18) mg/dL 14 Creatinine (0.55-1.02) mg/dL 0.9 Est GFR (CKD-EPI 2020) (mL/min/1.73m2) 70.51 Glucose (74-106) mg/dL 95 Calcium (8.5-10.1) mg/dL 9.2 Magnesium (1.8-2.4) mg/dL 2.0 Total Bilirubin (0.2-1.0) mg/dL 0.41 AST (15-37) U/L 9 L ALT (14-59) U/L 7 L Alkaline Phosphatase (46-116) U/L 117 H Total Protein (6.4-8.2) g/dL 7.3 Albumin (3.4-5.0) g/dL 3.9 Lipase (<78) U/L 15 COVID-19 Source Nasopharynx SARS-CoV-2 (PCR) (Negative) Negative Influenza Type A (PCR) (Negative) Negative Influenza Type B (PCR) (Negative) Negative RSV (PCR) (Negative) Negative Quality:SDOH Health Related Social Needs: No Data to Display PFSH All Active Problems (Updated 09/26/24 @ 11:19 by EMA Owen) Constipation (Acute) Nasal lesion (Acute) Vitamin B 12 deficiency (Acute) Onychomycosis (Acute) Osteoarthritis of left foot (Acute) Hammertoe of left foot (Acute) Cramping of feet (Acute) Pain in joint, foot, left (Acute) Hallux rigidus, left foot (Acute) Hammer toe of left foot (Acute) Hammer toe of right foot (Acute) Tinea unguium (Acute) Other specified peripheral vascular diseases (Acute) Exostosis of toe (Acute) Toe pain, right (Acute) Toe pain, left (Acute) Mild cognitive impairment (Acute) Advanced care planning/counseling discussion (Acute) GERD (gastroesophageal reflux disease) (Chronic) cough is symptom Hypersomnia (Acute) part of her parkinsons Anxiety (Chronic) Prediabetes (Chronic) improved with diet- a1c 5.4% 03/2021 Cognitive developmental delay (Acute) Parkinson disease (Chronic) Tremor (Acute) Hypothyroid (Chronic) Osteopenia (Chronic) 2018 Ordered after fractured femur right hip T score-0.2, lumbar spine T score-1.3. Vitamin D deficiency (Chronic) Obstructive sleep apnea (Acute) 03/30/16[place] [place] Increased body mass index (Acute) Asthma (Chronic) mild persistent in combination with moderately-severe restrictive lung disease Medical History Palliative care encounter Hammer toe of left foot [facility] [place] Degenerative joint disease of left hip Rectocele 10/23/2019 stage I. Noted at time of postop exam following anterior colporrhaphy Primary osteoarthritis of right knee Midline cystocele (02/18/13) 09/10/2019 Rx with anterior colporrhaphy Sigmoid diverticulosis Internal hemorrhoids Chronic constipation GERD (gastroesophageal reflux disease) Vitiligo Heart murmur, systolic Surgical History Hx of vaginal surgery 09/10/2019 anterior colporrhaphy. Uterus remains. History of vein stripping Status post cholecystectomy Status post incision and drainage (08/14/15) Colonoscopy planned (~08/12/18) Dr Gurera: diverticulosis, internal hemorrhoids History of esophagogastroduodenoscopy (EGD) (05/18/11) Dr Elmer Koroma Hx of fracture of femur (01/24/18) post open reduction and internal fixation of L femoral neck fracture treated with cannulated screws VEIN STRIPPING 05/13/03 X 2; 02/15/11 STRESS TEST (01/23/14) Debridement, Soft Tissue 08/14/15; DR. BERKOWITZ; LEFT DORSAL HAND ABSCESS Cystocele, midline used #4 ring with support pessary. 09/10/19. anterior colporrhaphy Family History Father Alcohol abuse Alzheimer disease Social History Smoking/Tobacco Use Status: Never Second Hand Exposure: Yes Smoking risk assessment performed?: Yes Alcohol Intake: never Drug use: Never Substance use type: does not use Adopted: No Caregiver/Support person: No Household members: none Housing: house Number of Children: 3 number of grandchildren: 1 Communication Needs: None Education Level: high school Do you need help understanding health information?: Never Pets and animals: No Sexually active: No Do you think of yourself as: straight/heterosexual Current gender identity: female What is your relationship status?: How often do you talk on the phone with friends or family?: three or more times per week How often do you get together with friends or relatives?: twice per week How often do you attend orthodoxy or jehovah's witness services?: 4 or more times per year Do you belong to any clubs or organized social groups?: no Panel score (0-1 are the most socially isolated patients): 2 What type of physical activity do you participate in: walking Duration: 45-60 minutes/day Frequency: 3-4 times per week Veronika/Roman Catholic: Roman Catholic Special veronika needs: No Seatbelt use: always Helmet use: Yes Helmet use: always Drive intox or ride w/intox commercial truck driver: No Firearms in home: Yes Do you feel safe at home: Yes History History 3 Para Hx # Term Pregnancies 3 Multiple births Hx # Pregnancies Ectopic pregnancies AB induced Hx Number of Living Children AB spontaneous
[2024-09-26 10:12] LABS: Lactate 0.7 mmol/L (0.6-1.4)
[2024-09-26 10:13] LABS: Abs Immature Grans 0.01 10^3/uL (0.0-0.06); Absolute Basophil Count 0.03 10^3/uL (0.0-0.2); Absolute Eosinophil Count 0.07 10^3/uL (0.0-0.7); Absolute Lymphocyte Count 1.73 10^3/uL (1.2-3.4); Absolute Neutrophil Count 2.29 10^3/uL (1.2-6.7); Basophils % 0.6 %; Eosinophils % 1.5 %; HCT 39.6 % (36.0-46.0); HGB 13.4 g/dL (11.2-15.7); Immature Grans % 0.2 %; Lymphocytes % 37.4 %; MCH 31.6 pg (27.0-33.0); MCHC 33.8 % (32.0-36.0); MCV 93 fL (80-95); MPV 9.3 fL (8.0-11.0); Monocytes % 10.8 %; Neutrophils % 49.5 %; Platelet Count 194 10^3/uL (130-400); RBC 4.24 10^6/uL (3.93-5.22); RDW 12.9 % (11.7-14.6); RDW-SD 44.4 fL; WBC 4.63 10^3/uL (4.4-10.8)
[2024-09-26 10:29] LABS: ALT 7 U/L (14-59); AST 9 U/L (15-37); Albumin 3.9 g/dL (3.4-5.0); Alkaline Phosphatase 117 U/L (46-116); Anion Gap 8.5 mmol/L (3-11); BUN 14 mg/dL (7-18); Bilirubin, Total 0.41 mg/dL (0.2-1.0); CO2 27.5 mmol/L (21.0-32.0); CREATININE 0.9 mg/dL (0.55-1.02); Calcium 9.2 mg/dL (8.5-10.1); Chloride 105 mmol/L (98-107); Estimated GFR 70.51 (mL/min/1.73m2); Glucose 95 mg/dL (74-106); Lipase 15 U/L (<78); Potassium 3.9 mmol/L (3.5-5.1); Sodium 141 mmol/L (136-145); Total Protein 7.3 g/dL (6.4-8.2)
[2024-09-26 10:40] LABS: COVID-19 PCR Negative (Negative); Influenza A PCR Negative (Negative); Influenza B PCR Negative (Negative); RSV PCR Negative (Negative)
[2024-09-26 10:42] LABS: Source Nasopharynx
[2024-09-26] MEDS: Omnipaque 350 MG/ML 100 ML BTL 75 ML IJ (10:50)
[2024-09-26] MEDS: Normal Saline - Diluent 50 ML VIAL IJ (10:52)
[2024-09-26 11:35] VITALS: BP 120/69; PULSE 67; RESP 18; O2SAT 95
== END 2024-09-26 11:36 | disposition home or self-care (01) ==
PROVIDERS: Emergency Provider Physician Assistant; PCP Nurse Practitioner Family
DX: K59.00 Constipation, unspecified (principal); R53.1 Weakness; R10.31 Right lower quadrant pain
CPT/HCPCS: 36415; 80053; 83690; 87637; 99285; 74177; 83605; 83735; 85025; 99284; J3490

== ENCOUNTER 2025-05-11 01:29 | Outpatient (CLI) | payer MEDICAID, SELFPAY ==
--- NOTE | 2025-05-11 08:55 | DI.MAMMO_ITS ---
Exam(s) MAMMO SCREENING EXAM: MAMMO SCREENING CLINICAL HISTORY: screening,z12.39 TECHNIQUE: Mammograms were interpreted according to the usual protocol including computer analysis with CAD system, tomosynthesis and C-view imaging. COMPARISON: 2014 through 2023 FINDINGS: The breasts are composed of scattered fibroglandular densities, Breast Density category B. No suspicious masses or suspicious microcalcifications are seen. A pacemaker is now in place overlying the left pectoral muscle. No skin thickening or abnormal axillary lymph nodes are seen. There has been no significant change from prior exams. IMPRESSION: BI-RADS Category 1, Negative mammogram Yearly screening mammography is recommended. Breast Density - Category B - There are scattered areas of fibroglandular density. Breast density Category C or D implies that the patient has dense breast tissue. Dense breast tissue can make it harder to find cancer on a mammogram. Dense breast tissue is also associated with an increased risk of breast cancer. This information about the result of the mammogram report was provided to the patient to raise their awareness. Use this report when you speak with the patient about their risks for breast cancer, which includes their family history. At that time, you may recommend additional screening tests (Ultrasound or MRI) as these tests may add significant information. A negative radiographic report should not delay biopsy if a dominant or clinically suspicious mass is present. Up to ten percent of cancers are not identified on mammography. A negative report may reinforce clinical impression. Adenosis and dense breasts may obscure an underlying neoplasm. False positive reports average 6 to 10%. Patient will receive a letter notifying them of these results.
[2025-05-11 09:57] LABS: Hemoglobin A1C 5.1 % (<5.7)
[2025-05-11 13:43] LABS: Anion Gap 10.1 mmol/L (3-11); BUN 19 mg/dL (7-18); CO2 25.9 mmol/L (21.0-32.0); Calcium 9.3 mg/dL (8.5-10.1); Calculated LDL 78 mg/dL (<100); Chloride 106 mmol/L (98-107); Cholesterol 141 mg/dL (<200); Estimated GFR 70.07 (mL/min/1.73m2); Glucose 108 mg/dL (74-106); HDL Cholesterol 51 mg/dL (>or=50); Potassium 4.0 mmol/L (3.5-5.1); Sodium 142 mmol/L (136-145); TSH (W/Ref FT4) 5.23 uIU/mL (0.36-3.74); Triglyceride 64 mg/dL (<150); Vitamin D 25 Total 41 ng/mL (30-100)
== END 2025-05-11 01:49 ==
PROVIDERS: PCP Nurse Practitioner Family; Visit Provider Nurse Practitioner Family
DX: Z12.31 Encounter for screening mammogram for malignant neoplasm of breast (principal); E55.9 Vitamin D deficiency, unspecified; Z00.00 Encounter for general adult medical examination without abnormal findings; F41.9 Anxiety disorder, unspecified; R73.03 Prediabetes; K21.9 Gastro-esophageal reflux disease without esophagitis
CPT/HCPCS: 36415; 77063; 77067; 80048; 80061; 82306; 83036; 84439; 84443

== ENCOUNTER 2025-06-23 00:40 | Outpatient (CLI) | payer MEDICAID, SELFPAY ==
[2025-06-23 12:04] LABS: TSH (W/Ref FT4) 0.43 uIU/mL (0.36-3.74)
== END 2025-06-23 00:41 | disposition home or self-care (01) ==
LOC: LBO 00:40
PROVIDERS: PCP Nurse Practitioner Family; Visit Provider Nurse Practitioner Family
DX: E03.9 Hypothyroidism, unspecified (principal)
CPT/HCPCS: 36415; 84443

== ENCOUNTER → 2025-08-18 08:39 | Outpatient (CLI) | payer MEDICAID, SELFPAY ==
--- NOTE | 2025-08-18 08:30 | DI.RAD_ITS ---
Exam(s) XR CHEST 2V PA LATERAL EXAM: XR CHEST 2V PA LATERAL CLINICAL HISTORY: continued chest congestion and SOB, CHEST CONGRESTION, ASTHMA R09.89 J45.20 TECHNIQUE: 2D digital imaging was performed. Two views. COMPARISON: CR XR CHEST 2V PA LATERAL from 08/19/[address] chest high resolution from 09/05/2018 FINDINGS: HEART: Normal size. Aorta: Not dilated. PULMONARY VASCULATURE: Normal. MEDIASTINUM: Unremarkable. LUNGS: Clear. PLEURAL SPACE: No pleural effusion or pneumothorax. BONE:Unremarkable for age. SOFT TISSUES: Left-sided spinal stimulator device with lead extending up into neck. IMPRESSION: No acute abnormality. DATA REPOSITORY: RADIATION DOSE DELIVERED:
== END ==
LOC: DI 08:39
PROVIDERS: PCP Nurse Practitioner Family; Visit Provider Nurse Practitioner Family
DX: R09.89 Other specified symptoms and signs involving the circulatory and respiratory systems (principal); J45.20 Mild intermittent asthma, uncomplicated
CPT/HCPCS: 71046